=== PATIENT | female | born 1950 | race Caucasian/White ===

== ENCOUNTER → 2018-02-20 11:45 | Outpatient (CLI) | payer OTHER, SELFPAY | DX: Z23 Encounter for immunization (principal) | CPT/HCPCS: 90471; 90662 ==

== ENCOUNTER → 2018-02-20 15:00 | Outpatient (CLI) | payer OTHER, SELFPAY | DX: Z23 Encounter for immunization (principal) | CPT/HCPCS: 90471; 90662 ==

== ENCOUNTER → 2018-10-17 14:27 | Outpatient (CLI) | payer OTHER, SELFPAY ==
--- NOTE | 2018-10-17 | DI.MG.S_ITS ---
BILATERAL DIGITAL SCREENING MAMMOGRAM 3D/2D WITH CAD: 10/17/2018 CLINICAL: Routine screening. Comparison is made to exams dated: 09/25/2017 mammogram, 07/31/2016 mammogram, and 04/26/2015 mammogram - [facility]. The tissue of both breasts is heterogeneously dense. This may lower the sensitivity of mammography. Current study was also evaluated with a Computer Aided Detection (CAD) system. No significant masses, calcifications, or other findings are seen in either breast. There has been no significant interval change. IMPRESSION: NEGATIVE There is no mammographic evidence of malignancy. A 1 year screening mammogram is recommended. This exam was interpreted at Station ID: [id number]. NOTE: For mammograms, a report in lay terms will be sent to the patient. Approximately 15% of breast malignancies will not be visualized mammographically. In the management of a palpable breast mass, a negative mammogram must not discourage biopsy of a clinically suspicious lesion. Electronically Signed By: Patrick nevarez/bandar:10/17/2018 16:56:24 letter sent: Normal Exam ACR BI-RADS Category 1: Negative [id number]
== END ==
PROVIDERS: Visit Provider Family Medicine
DX: Z12.31 Encounter for screening mammogram for malignant neoplasm of breast (principal)
CPT/HCPCS: 77063; 77067

== ENCOUNTER 2018-11-19 00:33 | Emergency (ER) | payer OTHER, SELFPAY ==
[2018-11-19 00:47] VITALS: BP 189/97; PULSE 84; RESP 16; O2SAT 100; BMI 21.2
--- NOTE | 2018-11-19 00:49 | DI.CT.S_ITS ---
PROCEDURE: CT ABDOMEN PELVIS W CON INDICATIONS: severe right lower quadrant pain, worse with motion, extensive surgical history TECHNIQUE: After the administration of intravenous contrast, 5 mm thick sections acquired from the diaphragm to the symphysis. 5 mm coronal and sagittal reformats were acquired. For radiation dose reduction, the following was used: automated exposure control, adjustment of mA and/or kV according to patient size. COMPARISON: None. FINDINGS: Image quality: Excellent. ABDOMEN: Lung bases: Lung bases are clear. Heart size is normal. Solid organs: Liver is normal in size and enhancement. Gallbladder is normal. Biliary system is non dilated. Pancreas enhances normally. Spleen is multilobulated in shape but normal in enhancement. No adrenal nodules. Kidneys demonstrate normal size and enhancement, without hydronephrosis. Peritoneum and bowel: Increased quantity of stool throughout the colon. Mildly prominent small bowel loops with a few air-fluid levels. No surrounding inflammatory changes. No free fluid or air. Nodes and vessels: No retroperitoneal or mesenteric adenopathy by size criteria. Aorta and inferior vena cava are normal in size. Miscellaneous: No ventral hernias. PELVIS: Genitourinary: Bladder wall thickness is normal. Miscellaneous: No inguinal hernias or adenopathy. Bones: No suspicious bony lesions. No vertebral body compression fractures. IMPRESSION: 1. Increased fecal loading suggestive of obstipation. 2. Probable small bowel ileus, less likely enteritis. 3. Nonvisualized appendix but no secondary signs of acute appendicitis. 4. Concordant with preliminary results. Dictated by: Tamiko Garcias M.D. on 11/19/2018 at 8:57 Approved by: Tamiko Garcias M.D. on 11/19/2018 at 9:01
[2018-11-19 01:00] VITALS: BP 151/73; PULSE 68; RESP 16; O2SAT 100
[2018-11-19 01:20] LABS: Add Manual Diff / Slide Review NO; Basophils Absolute Auto 100 /uL (0-100); Basophils Percent Auto 1.1 % (0-2); Eosinophils Absolute Auto 100 /uL (0-450); Eosinophils Percent Auto 3.1 % (2-4); Hematocrit 41.5 % (36-46); Hemoglobin 13.8 g/dL (12.0-16.0); Lymphocytes Absolute Auto 2000 /uL (1100-4500); Lymphocytes Percent Auto 41.7 % (25-40); Mean Corpuscular HGB Conc 33.4 % (30-36); Mean Corpuscular Hemoglobin 30.2 PG (26-34); Mean Corpuscular Volume 90.5 fL (80-100); Monocytes Absolute Auto 400 /uL (0-900); Monocytes Percent Auto 9.4 % (3-14); Neutrophils Absolute Auto 2100 /uL (1500-7000); Neutrophils Percent Auto 44.7 % (50-75); Platelet Count 192 X10^3/uL (150-400); Red Blood Cell Count 4.58 X10^6/uL (4.0-5.2); Red Cell Distribution Width 13.6 % (11.6-14.8); White Blood Cell Count 4.7 X10^3/uL (4.5-11.0)
[2018-11-19] MEDS: SODIUM CHLORIDE 0.9% 1,000 ML 150 ML IV (01:26)
[2018-11-19] MEDS: HYDROMORPHONE 1 MG INJ IV ×2 (01:27→03:28)
[2018-11-19 01:49] LABS: Alanine Aminotransferase 36 IU/L (9-52); Albumin 4.7 g/dL (3.5-5.0); Albumin Globulin Ratio 1.4 (1.0-2.8); Alkaline Phosphatase 136 U/L (38-126); Aspartate Aminotransferase 31 IU/L (14-36); Bilirubin Total 0.7 mg/dL (0.2-1.3); Blood Urea Nitrogen 14 mg/dL (7-17); Calcium 9.6 mg/dL (8.4-10.2); Carbon Dioxide 26 mmol/L (22-32); Chloride 107 mmol/L (98-107); Estimated Glomerular Filt Rate > 60.0 mL/min (>60); Globulin 3.3 g/dL (1.7-4.1); Glucose 85 mg/dL (80-110); HEMOLYSIS < 15 (0-50); Lipase 257 U/L (23-300); Potassium 3.9 mmol/L (3.4-5.1); Sodium 143 mmol/L (137-145)
[2018-11-19 02:00] VITALS: BP 153/66; PULSE 71; RESP 16; O2SAT 99
--- NOTE | 2018-11-19 02:19 | ED_ITS ---
HPI - Abdominal Pain General Chief Complaint: Abdominal Pain Stated Complaint: thinks she may have appendicitis or bowel obstruct Time Seen by Provider: 11/19/18 00:35 Source: patient and family Mode of arrival: ambulatory Limitations: no limitations History of Present Illness HPI narrative: 67-year-old female nonsmoker with extensive abdominal surgical history presents with a chief complaint of gradually worsening right lower quadrant pain over the course of the day. She does admit to some radiation to her back. She has had multiple episodes of adhesions and small-bowel obstructions. She denies nausea or vomiting. She has had no fever or chills. Her pain is worse with motion and improves with rest. It radiates from her right groin to her right back. She denies any dysuria, frequency or urgency. MD complaint: abdominal pain Onset (ago): hour(s) Pain Consistency: constant Location: RLQ Severity: moderate Severity scale (1-10): 5 Quality: cramping Radiation: suprapubic and R flank Relieving factors: rest Exacerbating factors: movement Associated symptoms: denies other symptoms Related Data Previous Rx's Medication Instructions Recorded pneumoc 13-kamilla conj-dip cr(PF) 0.5 ml IM X1 #1 ea 07/03/16 [Prevnar 13 (PF)] Mouth Guard #1 ea 04/16/18 SEE SCAN FROM 04/21/18 FOR See Rx Instructions .ROUTE 04/21/18 VITAMINS/SUPPLEMENTS .COMPLEX #1 hydrocodone-acetaminophen 1 tab PO Q4-6H PRN #10 tab 11/19/18 hyoscyamine sulfate 0.125 mg PO BID-QID PRN #10 tab 11/19/18 ondansetron 4 mg PO TID-QID PRN #10 tab 11/19/18 Allergies Allergy/AdvReac Type Severity Reaction Status Date / Time clindamycin [CLINDAMYCIN] Allergy Unknown Unverified 10/31/17 14:13 pentazocine [From TALWIN] Allergy Unknown Unverified 10/31/17 14:13 Sulfa (Sulfonamide Allergy Unknown Unverified 10/31/17 14:13 Antibiotics) [SULFA (SULFONAMIDE ANTIBIOTICS)] SULFA Allergy Unknown RASH Uncoded 10/31/17 14:13 Review of Systems Constitutional Denies chills, Denies fever(s), Denies lethargy and Denies weakness Eyes Denies change in vision, Denies eye discharge, Denies irritation and Denies loss of vision ENT Ears, Nose, Mouth, and Throat: Denies change in voice, Denies neck pain and Denies sore throat Cardiovascular Denies chest pain, Denies irregular heart rhythm, Denies lightheadedness, Denies palpitations, Denies dyspnea, Denies dyspnea on exertion and Denies orthopnea Respiratory Denies cough, Denies dyspnea, Denies dyspnea on exertion and Denies wheezing Gastrointestinal Gastrointestinal: Reports abdominal pain, Denies change in bowel habits, Denies diarrhea, Denies nausea and Denies vomiting Genitourinary Denies hematuria, Denies flank pain, Denies urinary incontinence and Denies urinary urgency Musculoskeletal Denies neck pain Integumentary/Breasts Denies pruritus, Denies erythema, Denies rash and Denies wounds Neurologic Denies confusion, Denies loss of vision and Denies weakness Psychiatric Denies anxiety, Denies confusion, Denies depression, Denies homicidal ideation and Denies suicidal ideation Endocrine Denies palpitations Hematologic/Lymphatic Denies easy bruising Allergic/Immunologic Denies wheezing FOR[facility]LY [facility] Medical History Osteopenia (Chronic) TMJ (temporomandibular joint disorder) (Chronic) Factor V Leiden (Chronic) Bowel perforation (Chronic ~1973) Genital warts (Chronic ~1980) Hearing loss (Chronic) Tinnitus (Chronic) Vertigo (Chronic ~2009) Vision disorder (Chronic) Abnormal Pap smear of cervix (Resolved ~2009) Chicken pox (Resolved) Measles (Resolved ~1956) Surgical History Anesthesia (Resolved) Fractures (Resolved) Status post colostomy (~1973) Family History Father No problems noted. Mother No problems noted. 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 Mother No problems noted. 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 Normocephalic. No temporal or scalp tenderness. EYES: Pupils equal round and reactive. Extraocular motions intact. No scleral icterus. No injection or drainage. ENT: Nose without bleeding, purulent drainage or septal hematoma. Throat without erythema, tonsillar hypertrophy or exudate. Uvula midline. Airway patent. NECK: Trachea midline. No JVD or lymphadenopathy. Supple, nontender, no meningea l signs. CARDIOVASCULAR: Regular rate and rhythm without murmurs, gallops, or rubs. RESPIRATORY: Clear to auscultation. Breath sounds equal bilaterally. No wheezes, rales, or rhonchi. GASTROINTESTINAL: Abdomen soft, tender right lower quadrant, nondistended. No hepato-splenomegaly, or palpable masses. No guarding. EXTREMITIES: No clubbing, cyanosis, or edema. No joint tenderness, effusion, or edema noted. BACK: Nontender without deformity or crepitance. No flank tenderness. NEURO: AOx3. SKIN: No rash or erythema. Initial Vital Signs Initial Vital Signs: Vital Signs Pulse Rate 84 11/19/18 00:47 Respiratory Rate 16 11/19/18 00:47 Blood Pressure 189/97 H 11/19/18 00:47 Pulse Oximetry 100 11/19/18 00:47 Course Orders Ordered: ED Orders 11/19/18 00:49 CT abdomen pelvis w con Stat 11/19/18 01:12 Complete Blood Count AUTO DIFF Stat Comprehensive Metabolic Panel Stat Lipase Stat Sodium Chloride (Normal Saline 0.9%) 1,000 mls @ 150 mls/hr IV CONT JOHNATHAN Last Infusion: 11/19/18 03:06 Dose: 0 mls/hr Admin: 11/19/18 01:26 Dose: 150 mls/hr Discontinued Medications Hydrocodone Bitart/Acetaminophen (Vicodin Prepack) 1 bottle MISC SEEINSTR ONE Stop: 11/19/18 03:05 Last Admin: 11/19/18 03:16 Dose: 1 bottle Hydromorphone HCl (Dilaudid) 1 mg IV NOW ONE Stop: 11/19/18 01:26 Last Admin: 11/19/18 01:27 Dose: 1 mg Hydromorphone HCl (Dilaudid) 1 mg IV NOW ONE Stop: 11/19/18 03:27 Last Admin: 11/19/18 03:28 Dose: 1 mg Ondansetron HCl (Zofran) 4 mg IV NOW ONE Stop: 11/19/18 02:38 Last Admin: 11/19/18 02:40 Dose: 4 mg Ondansetron HCl (Zofran Odt Prepack) 1 bottle MISC SEEINSTR ONE Stop: 11/19/18 03:05 Last Admin: 11/19/18 03:16 Dose: 1 bottle Ondansetron HCl (Zofran) 4 mg IV NOW ONE Stop: 11/19/18 03:27 Last Admin: 11/19/18 03:28 Dose: 4 mg Vital Signs - 8 hr 11/19/18 00:47 11/19/18 01:00 11/19/18 02:00 Pulse Rate 84 68 71 Respiratory Rate 16 16 16 Blood Pressure 189/97 H Blood Pressure [Left Arm] 151/73 H 153/66 H Pulse Oximetry 100 100 99 11/19/18 03:16 Pulse Rate 60 Respiratory Rate 18 Blood Pressure 107/68 Blood Pressure [Left Arm] Pulse Oximetry 98 MDM - Abdominal Pain Lab Data Result diagrams: 11/19/18 01:12 11/19/18 01:12 Lab Results 11/19/18 11/19/18 Range/Units 01:12 01:12 WBC 4.7 (4.5-11.0) X10^3/uL RBC 4.58 (4.0-5.2) X10^6/uL Hgb 13.8 (12.0-16.0) g/dL Hct 41.5 (36-46) % MCV 90.5 (80-100) fL MCH 30.2 (26-34) PG MCHC 33.4 (30-36) % RDW 13.6 (11.6-14.8) % Plt Count 192 (150-400) X10^3/uL Neut % (Auto) 44.7 L (50-75) % Lymph % (Auto) 41.7 H (25-40) % [place] % (Auto) 9.4 (3-14) % Eos % (Auto) 3.1 (2-4) % Baso % (Auto) 1.1 (0-2) % Neut # (Auto) 2100 (3894-1587) /uL Lymph # (Auto) 2000 (4557-7257) /uL [place] # (Auto) 400 (0-900) /uL Eos # (Auto) 100 (0-450) /uL Baso # (Auto) 100 (0-100) /uL Sodium 143 (137-145) mmol/L Potassium 3.9 (3.4-5.1) mmol/L Chloride 107 (98-107) mmol/L Carbon Dioxide 26 (22-32) mmol/L BUN 14 (7-17) mg/dL Creatinine 0.50 L (0.52-1.04) mg/dL Estimated GFR > 60.0 (>60) mL/min BUN/Creatinine Ratio 28.0 H (6-22) Glucose 85 (80-110) mg/dL Calcium 9.6 (8.4-10.2) mg/dL Total Bilirubin 0.7 (0.2-1.3) mg/dL AST 31 (14-36) IU/L ALT 36 (9-52) IU/L Alkaline Phosphatase 136 H (38-126) U/L Total Protein 8.0 (6.3-8.2) g/dL Albumin 4.7 (3.5-5.0) g/dL Globulin 3.3 (1.7-4.1) g/dL Albumin/Globulin Ratio 1.4 (1.0-2.8) Lipase 257 (23-300) U/L Imaging Data CT scan - abdomen: Radiologist's impression: No diverticulitis or colitis, obstructive uropathy or bowel obstruction. Appendix not visualized however no pericecal inflammation. Enteritis as described. MDM Narrative Medical decision making narrative: Multiple etiologies for patient's symptoms considered including: [Bowel obstruction versus pain from adhesions versus sara endicitis versus other] Patient's symptoms improved or duration of stay with above-stated therapies. Findings and discharge diagnosis discussed with patient/family followed by verbalization of understanding Return precautions discussed with patient/family whom verbalize understanding. Discharge Plan Departure Patient Disposition: Home Clinical Impression: Enteritis Constipation Qualifiers: Constipation type: unspecified constipation type Qualified Code(s): K59.00 - Constipation, unspecified Interventions: ED Discharge Assessment Last Done: 11/19/18 03:16 Instructions: DI for Enteritis Activity Restrictions/Additional Instructions: 1. Drink plenty of fluids with frequent small sips. 2. For the next 24 hours a clear liquid diet is advised. After that please employ a brat diet which would include bananas, rice, apples, toast. 3. Please take medications as directed. 4. Please follow-up with your doctor in the next 1-2 days. Call the office for an appointment. 5. Please return to the emergency Department for any worsening or persistent symptoms, such as increasing pain or fever. Prescriptions: New hydrocodone-acetaminophen 5-325 mg tablet 1 tab PO Q4-6H PRN (Reason: pain) Qty: 10 RF: 0 ondansetron 4 mg tablet,disintegrating 4 mg PO TID-QID PRN (Reason: nausea and vomiting) Qty: 10 RF: 0 hyoscyamine sulfate 0.125 mg tablet 0.125 mg PO BID-QID PRN (Reason: dyspepsia) Qty: 10 RF: 0 No Action pneumoc 13-kamilla conj-dip cr(PF) [Prevnar 13 (PF)] 0.5 ML syringe 0.5 ml IM X1 Qty: 1 RF: 0 SEE SCAN FROM 04/21/18 FOR VITAMINS/SUPPLEMENTS See Rx Instructions .ROUTE .COMPLEX Qty: 1 RF: 0 Mouth Guard Qty: 1 RF: 1 Stand Alone Forms: Work Release Note
[2018-11-19] MEDS: ONDANSETRON 4 MG/2 ML INJ IV ×2 (02:40→03:28)
[2018-11-19 03:16] VITALS: BP 107/68; PULSE 60; RESP 18; O2SAT 98
[2018-11-19] MEDS: ONDANSETRON 4 MG ODT PREPACK 1 BOTTLE MISC (03:16)
[2018-11-19] MEDS: HYDROCODONE/ACET 5/325 PREPACK 1 BOTTLE MISC (03:16)
[2018-11-19 03:32] VITALS: BP 152/79; PULSE 75; RESP 16; O2SAT 98
== END 2018-11-19 04:00 | disposition home or self-care (01) ==
PROVIDERS: Emergency Provider Emergency Medicine
DX: K52.9 Noninfective gastroenteritis and colitis, unspecified (principal); K59.00 Constipation, unspecified
CPT/HCPCS: 36591; 74177; 80053; 83690; 85025; 96361; 96374; 96375; 96376; 99283; 99284; J1170; J2405; Q9967

== ENCOUNTER → 2018-11-21 14:16 | Outpatient (CLI) | payer OTHER, SELFPAY ==
[2018-11-22 13:31] LABS: Adenovirus F 40/41 Not Detected (Not Detect); Campylobacter Not Detected (Not Detect); Clostridium difficile toxin AB Not Detected (Not Detect); Cryptosporidium Not Detected (Not Detect); Cyclospora cayetanensis Not Detected (Not Detect); Entamoeba histolytica Not Detected (Not Detect); Enteroaggregative E.coli Not Detected (Not Detect); Enteropathogenic E.coli Not Detected (Not Detect); Enterotoxigenic E.coli It/st Not Detected (Not Detect); Giardia lamblia Not Detected (Not Detect); Plesiomonsa shigelloides Not Detected (Not Detect); Salmonella Not Detected (Not Detect); Shiga-like toxin-prod E.coli Not Detected (Not Detect); Shigella/Enteroinvasive E.coli Not Detected (Not Detect); Vibrio Not Detected (Not Detect); Vibrio cholerae Not Detected (Not Detect); Yersinia enterocolitica Not Detected (Not Detect)
[2018-11-22 13:32] LABS: Astrovirus Not Detected (Not Detect); Norovirus GI/GII Not Detected (Not Detect); Rotavirus A Not Detected (Not Detect)
== END ==
PROVIDERS: Visit Provider Family Medicine
DX: K52.9 Noninfective gastroenteritis and colitis, unspecified (principal); K59.00 Constipation, unspecified; R10.9 Unspecified abdominal pain
CPT/HCPCS: 87507

== ENCOUNTER → 2019-02-10 10:42 | Outpatient (CLI) | payer OTHER, SELFPAY ==
--- NOTE | 2019-02-10 10:44 | DI.US.S_ITS ---
PROCEDURE: US PELVIC COMPLETE INDICATIONS: POST MENOPAUSAL BLEEDING AND CRAMPING TECHNIQUE: Real-time scanning was performed of the pelvic organs, with image documentation. Additional endovaginal scanning was necessary due to incomplete visualization of the adnexal and endometrial structures by transabdominal scanning. COMPARISON: None. FINDINGS: Transabdominal scanning: Limited scanning through the kidneys shows no hydronephrosis. No pathologic free abdominal or pelvic fluid. Endovaginal scanning: Uterus: Uterus is normal in size at 12.1 x 2.2 x 2.8 cm. The endometrium measures 1.3 mm in combined thickness. Ovaries: Ovaries normal in size measuring 1.8 x 0.8 x 0.8 cm on the right and 2.5 x 1.0 x 0.8 cm on the left. Simple cyst associated with the left ovary measuring 1.3 cm. IMPRESSION: 1. Normal endometrial complex at 1.3 mm. 2. 13 mm simple left ovarian cyst. Dictated by: Rajat JASSO Interpreted: Naomi Walker MD on 02/10/2019 at 13:51 Approved by: Naomi Walker M.D. on 02/10/2019 at 17:07
== END ==
PROVIDERS: PCP Family Medicine; Visit Provider Specialist
DX: N95.0 Postmenopausal bleeding (principal); R10.2 Pelvic and perineal pain; N83.292 Other ovarian cyst, left side
CPT/HCPCS: 76830; 76856

== ENCOUNTER → 2019-02-10 13:25 | Outpatient (CLI) | payer OTHER, SELFPAY | PROVIDERS: PCP Family Medicine | DX: Z23 Encounter for immunization (principal) | CPT/HCPCS: 90471; 90662 ==

== ENCOUNTER 2019-04-15 13:45 | Outpatient (RCR) | payer OTHER, MEDICARE, SELFPAY ==
--- NOTE | 2019-04-08 15:52 | PT.OIE ---
Current Diagnoses Benign paroxysmal vertigo, unspecified ear (04/08/19) Benign paroxysmal vertigo, left ear (04/08/19) Past Medical History (Last Reviewed 11/21/18 @ 14:19 by Antonella Gannon DO) Abnormal Pap smear of cervix (Resolved ~2009) Bowel perforation (Chronic ~1973) Chicken pox (Resolved) Factor V Leiden (Chronic) Genital warts (Chronic ~1980) Hearing loss (Chronic) Measles (Resolved ~1956) Osteopenia (Chronic) Tinnitus (Chronic) TMJ (temporomandibular joint disorder) (Chronic) Vertigo (Chronic ~2009) Vision disorder (Chronic) Past Surgical History (Last Reviewed 11/21/18 @ 14:19 by Antonella Gannon DO) Anesthesia (Resolved) Fractures (Resolved) Status post colostomy (~1973) Visit Care Team Role Provider Type Antonella aGnnon DO Attending Provider Physician Primary Care Provider Specialty: [facility] Address: [address] [place] [address], [facility] Email: [email or web address] Physical Therapy Initial Evaluation PT-OP-A Visit Information Start: 04/08/19 15:31 Freq: Status: Active Protocol: Document 04/08/19 14:30 DCW (Rec: 04/08/19 15:51 DCW [id number]) Out-Patient Physical Therapy Visit Information Visit Information Visit Type Initial Evaluation Visit Start Time 14:30 Visit Stop Time 15:05 Total Visit Minutes 35 Visit Number 1 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 Pt reports episodes last seconds. Symptoms are provoked by looking up to the right, rolling over in bed, or getting up in bed. Pt denies recent hearing changes, tinnitus, diplopia, dysarthria , discoordination, or decreased mentation/ consciousness. Pt reports symptoms are not waxing/waning in nature. 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 Pt reports that her sister is an preschool paraprofessional, and 10 years ago, performed an Fred on her when pt first began having symptoms. Five years ago, pt had a recurrence, and was treated at this facility, and she was doing well until three weeks ago. As pt has been diagnosed and effectively treated for BPPV in the past, including by this therapist, an abbreviated evaluation was performed. If pt's symptoms change, worsen, or do not respond to CRM, a more comprehensive assessment will be needed. Prior Treatments and Tests Prior history and treatment of BPPV x2 Treatment Goals Patient/Caregiver Goals Eliminate positional BPPV PT-OP-C Subjective Start: 04/08/19 15:31 Freq: Status: Active Protocol: Document 04/08/19 14:30 DCW (Rec: 04/08/19 15:51 DCW [id number]) OP-PT Subjective Patient Comments Patient Comments My tried that Fred on me, I tried it on myself, we just can't get it right. Patient Reported Progress Same Patient Questionnaires Dizziness Handicap Inventory DHI Score 20% DHI Functional Impairment 20 to 39% Impaired (Score 20- 39) OP-PT Pain Assessment Pain Assessment Grid Paper Pain Assessment Grid Completed N/A PT-OP-O Vestibular Start: 04/08/19 15:31 Freq: Status: Active Protocol: Document 04/08/19 14:30 DCW (Rec: 04/08/19 15:51 DCW [id number]) Vestibular Assessment Positional Testing Mak[place]la-Hallpike Positive Left,Negative Right, Upbeating,< 60 Seconds Rolling Test Negative Left,Negative Right PT-OP-Q Treatments Start: 04/08/19 15:31 Freq: Status: Active Protocol: Document 04/08/19 14:30 DCW (Rec: 04/08/19 15:51 DCW [id number]) Canalithic Repositioning BPPV Treatment Fred Affected Canal(s) Left posterior Reps x2 PT-OP-T Assessment and Plan Start: 04/08/19 15:31 Freq: Status: Active Protocol: Document 04/08/19 14:30 DCW (Rec: 04/08/19 15:51 DCW [id number]) Physical Therapy Assessment Rehab Potential Rehabilitation Potential Excellent Evaluation Complexity Number of Personal Factors/Comorbidities 0 Number of Body Systems Impaired 1-2 Clinical Presentation at Evaluation Unstable Impairments Impairments Balance,Vestibular Goals Two Impairment Positive L [place]-Hallpike Short Term Goal (STG) Negative [place]-Hallpike bilaterally STG Duration 05/08/19 One Impairment Pt has rotational vertigo with positional changes Short Term Goal (STG) Pt to report ability to enter and exit bed with no complaints of vertigo STG Duration 05/08/19 Assessment Summary Assessment During left [place]-Hallpike test, pt complained of vertigo and demonstrated up-beating, torsional nystagmus lasting approximately 5 seconds, consistent with diagnosis of left-sided posterior canal BPPV, canalithiasis-type. Pt was treated with a left-sided Fred maneuver. Pt complained of symptoms in the first and third position, which is normally indicative of a successful treatment. Further positional testing was negative. Pt was educated on BPPV, expectations for treatment, possible recurrence (BPPV has a ~50% recurrence rate in the five years following treatment), and post -Frde restrictions. Pt to return in ~1 week for a follow -up appointment, and intermittently afterward as indicated for treatment of BPPV. Physical Therapy Plan Frequency and Duration Frequency of Treatment 1x/Week Duration of Treatment 6 weeks Plan of Care Start Date 04/08/19 Plan of Care End Date 05/20/19 Therapeutic Interventions Therapeutic Interventions Balance Training,Canalithic Repositioning,Vestibular Rehabilitation Next Visit Focus/Plan Next Note Type Treatment Note Next Visit Plan Positional testing, CRM as indicated
--- NOTE | 2019-04-08 15:52 | PT.OPPOC ---
Current Diagnoses Benign paroxysmal vertigo, unspecified ear (04/08/19) Benign paroxysmal vertigo, left ear (04/08/19) Visit Care Team Role Provider Type Antonella Gannon DO Attending Provider Physician Primary Care Provider Specialty: [facility] Address: [address] [place] [address], [facility] [place], [address] Email: [email or web address] Plan Of Care PT-OP-T Assessment and Plan Start: 04/08/19 15:31 Freq: Status: Active Protocol: Document 04/08/19 14:30 DCW (Rec: 04/08/19 15:51 DCW [id number]) Physical Therapy Assessment Rehab Potential Rehabilitation Potential Excellent Evaluation Complexity Number of Personal Factors/Comorbidities 0 Number of Body Systems Impaired 1-2 Clinical Presentation at Evaluation Unstable Impairments Impairments Balance,Vestibular Goals Two Impairment Positive L [place]-Hallpike Short Term Goal (STG) Negative [place]-Hallpike bilaterally STG Duration 05/08/19 One Impairment Pt has rotational vertigo with positional changes Short Term Goal (STG) Pt to report ability to enter and exit bed with no complaints of vertigo STG Duration 05/08/19 Assessment Summary Assessment During left Makayla-Hallpike test, pt complained of vertigo and demonstrated up-beating, torsional nystagmus lasting approximately 5 seconds, consistent with diagnosis of left-sided posterior canal BPPV, canalithiasis-type. Pt was treated with a left-sided Fred maneuver. Pt complained of symptoms in the first and third position, which is normally indicative of a successful treatment. Further positional testing was negative. Pt was educated on BPPV, expectations for treatment, possible recurrence (BPPV has a ~50% recurrence rate in the five years following treatment), and post -Fred restrictions. Pt to return in ~1 week for a follow -up appointment, and intermittently afterward as indicated for treatment of BPPV. Physical Therapy Plan Frequency and Duration Frequency of Treatment 1x/Week Duration of Treatment 6 weeks Plan of Care Start Date 04/08/19 Plan of Care End Date 05/20/19 Therapeutic Interventions Therapeutic Interventions Balance Training,Canalithic Repositioning,Vestibular Rehabilitation Next Visit Focus/Plan Next Note Type Treatment Note Next Visit Plan Positional testing, CRM as indicated Plan of Care Dates Plan of Care Start Date 11/20/19 Plan of Care End Date 05/20/19
--- NOTE | 2019-04-15 14:16 | PT.OTN ---
Current Diagnoses Benign paroxysmal vertigo, unspecified ear (04/15/19) Benign paroxysmal vertigo, left ear (04/15/19) Physical Therapy Treatment Note PT-OP-A Visit Information Start: 04/08/19 15:31 Freq: Status: Active Protocol: Document 04/15/19 13:45 DCW (Rec: 04/15/19 14:16 DCW [id number]) Out-Patient Physical Therapy Visit Information Visit Information Visit Type Treatment Note Visit Start Time 13:45 Visit Stop Time 14:05 Total Visit Minutes 20 Visit Number 2 Number of MARINE DESIGN ENGINEER Visits 0 Evaluation Information Evaluation Date 04/08/19 PT-OP-B Current Condition Start: 04/08/19 15:31 Freq: Status: Active Protocol: Document 04/08/19 14:30 DCW (Rec: 04/08/19 15:51 DCW [id number]) Current Condition History of Current Condition Onset Date three weeks Current Complaints Positional vertigo History of Current Condition Pt is a 68 year old female complaining of a three week history of motion-induced vertigo. Pt reports episodes last seconds. Symptoms are provoked by looking up to the right, rolling over in bed, or getting up in bed. Pt denies recent hearing changes, tinnitus, diplopia, dysarthria , discoordination, or decreased mentation/ consciousness. Pt reports symptoms are not waxing/waning in nature. 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 Pt reports that her sister is an transportation coordinator, and 10 years ago, performed an Fred on her when pt first began having symptoms. Five years ago, pt had a recurrence, and was treated at this facility, and she was doing well until three weeks ago. As pt has been diagnosed and effectively treated for BPPV in the past, including by this therapist, an abbreviated evaluation was performed. If pt's symptoms change, worsen, or do not respond to CRM, a more comprehensive assessment will be needed. Prior Treatments and Tests Prior history and treatment of BPPV x2 Treatment Goals Patient/Caregiver Goals Eliminate positional BPPV PT-OP-C Subjective Start: 04/08/19 15:31 Freq: Status: Active Protocol: Document 04/15/19 13:45 DCW (Rec: 04/15/19 14:16 DCW [id number]) OP-PT Subjective Patient Comments Patient Comments My dizziness is so much better. I may be still having just a little bit when I roll over in bed. PT-OP-O Vestibular Start: 04/08/19 15:31 Freq: Status: Active Protocol: Document 04/15/19 13:45 DCW (Rec: 04/15/19 14:16 DCW [id number]) Vestibular Assessment Positional Testing Middleton-Hallpike Negative Left,Negative Right Rolling Test Negative Left,Negative Right PT-OP-Q Treatments Start: 04/08/19 15:31 Freq: Status: Active Protocol: Document 04/15/19 13:45 DCW (Rec: 04/15/19 14:16 DCW [id number]) Canalithic Repositioning BPPV Treatment Fred Affected Canal(s) Left posterior Reps x2 PT-OP-T Assessment and Plan Start: 04/08/19 15:31 Freq: Status: Active Protocol: Document 04/15/19 13:45 DCW (Rec: 04/15/19 14:16 DCW [id number]) Physical Therapy Assessment Impairments Impairments Balance,Vestibular Goals Two Impairment Positive L Makayla-Hallpike Short Term Goal (STG) Negative Makayla-Hallpike bilaterally STG Duration 05/08/19 One Impairment Pt has rotational vertigo with positional changes Short Term Goal (STG) Pt to report ability to enter and exit bed with no complaints of vertigo STG Duration 05/08/19 Assessment Summary Assessment Positional testing entirely negative today. Unable to reproduce pt's complaints with rolling. Pt did note very mild vertigo upon supine->sit, however exhibited no associated nystagmus. Due to pt's continued mild complaints , a left-sided Fred was once again performed. Pt had no symptoms throughout maneuver. Pt will not be discharged at this time, however will also not schedule any more appointments today. Pt will call for follow-up visits within the next month if her symptoms persish, and otherwise will be discharged. Physical Therapy Plan Frequency and Duration Frequency of Treatment 1x/Week Duration of Treatment 6 weeks Plan of Care Start Date 04/08/19 Plan of Care End Date 05/20/19 Therapeutic Interventions Therapeutic Interventions Balance Training,Canalithic Repositioning,Vestibular Rehabilitation Next Visit Focus/Plan Next Note Type Treatment Note Next Visit Plan Positional testing, CRM as indicated
--- NOTE | 2019-05-19 10:21 | PT.OPDS ---
Current Diagnoses Benign paroxysmal vertigo, unspecified ear (04/15/19) Benign paroxysmal vertigo, left ear (04/15/19) Visit Care Team Role Provider Type Antonella Gannon DO Attending Provider Physician Primary Care Provider Specialty: [facility] Address: [address] [place] [address], [facility] Email: [email or web address] Visit Number Visit Number 2 Discharge Summary PT-OP-B Current Condition Start: 04/08/19 15:31 Freq: Status: Active Protocol: Document 04/08/19 14:30 DCW (Rec: 04/08/19 15:51 DCW [id number]) Current Condition History of Current Condition Onset Date three weeks Current Complaints Positional vertigo History of Current Condition Pt is a 68 year old female complaining of a three week history of motion-induced vertigo. Pt reports episodes last seconds. Symptoms are provoked by looking up to the right, rolling over in bed, or getting up in bed. Pt denies recent hearing changes, tinnitus, diplopia, dysarthria , discoordination, or decreased mentation/ consciousness. Pt reports symptoms are not waxing/waning in nature. 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 Pt reports that her sister is an veneer jointer helper, and 10 years ago, performed an Fred on her when pt first began having symptoms. Five years ago, pt had a recurrence, and was treated at this facility, and she was doing well until three weeks ago. As pt has been diagnosed and effectively treated for BPPV in the past, including by this therapist, an abbreviated evaluation was performed. If pt's symptoms change, worsen, or do not respond to CRM, a more comprehensive assessment will be needed. Prior Treatments and Tests Prior history and treatment of BPPV x2 Treatment Goals Patient/Caregiver Goals Eliminate positional BPPV PT-OP-C Subjective Start: 04/08/19 15:31 Freq: Status: Active Protocol: Document 04/15/19 13:45 DCW (Rec: 04/15/19 14:16 DCW [id number]) OP-PT Subjective Patient Comments Patient Comments My dizziness is so much better. I may be still having just a little bit when I roll over in bed. PT-OP-O Vestibular Start: 04/08/19 15:31 Freq: Status: Active Protocol: Document 04/15/19 13:45 DCW (Rec: 04/15/19 14:16 DCW [id number]) Vestibular Assessment Positional Testing Makayla-Hallpike Negative Left,Negative Right Rolling Test Negative Left,Negative Right PT-OP-T Assessment and Plan Start: 04/08/19 15:31 Freq: Status: Active Protocol: Document 05/19/19 10:19 DCW (Rec: 05/19/19 10:21 DCW [id number]) Physical Therapy Assessment Goals Two Impairment Positive L Makayla-Hallpike Short Term Goal (STG) Negative Makayla-Hallpike bilaterally STG Duration 05/08/19 One Impairment Pt has rotational vertigo with positional changes Short Term Goal (STG) Pt to report ability to enter and exit bed with no complaints of vertigo STG Duration Met Progress Towards Goals Progress Towards Goals Goals Met Assessment Summary Assessment spoke with pt over the phone today, pt reports that she was doing very well, no more symptoms. Pt will be discharged from skilled PT at this time. Physical Therapy Plan Frequency and Duration Frequency of Treatment 1x/Week Duration of Treatment 6 weeks Plan of Care Start Date 04/08/19 Plan of Care End Date 05/20/19 Therapeutic Interventions Therapeutic Interventions Balance Training,Canalithic Repositioning,Vestibular Rehabilitation Discharge Physical Therapy Discharge Reasons Goals Met Next Visit Focus/Plan Next Note Type Discharge Summary
== END 2019-06-04 10:45 ==
LOC: PHYS 13:45
PROVIDERS: PCP Family Medicine; Visit Provider Family Medicine
DX: H81.10 Benign paroxysmal vertigo, unspecified ear (principal); H81.12 Benign paroxysmal vertigo, left ear
CPT/HCPCS: 95992; 97161

== ENCOUNTER → 2020-02-02 10:48 | Outpatient (CLI) | payer OTHER, MEDICARE, SELFPAY ==
--- NOTE | 2020-02-02 11:03 | DI.MG.S_ITS ---
Patient Name: ANTOINETTE BECK date: 1950 Sex: F Attending Physician: Jagdeep Indications: Date: 02/02/2020 10:53 At the request of: DEBBY MASTERS Procedure: MM screening mammo BI BILATERAL DIGITAL SCREENING MAMMOGRAM 3D/2D WITH CAD: 02/02/2020 CLINICAL: Routine screening. Comparison is made to exams dated: 10/17/2018 mammogram, 09/25/2017 mammogram, 07/31/2016 mammogram, 04/26/2015 mammogram - [facility], and 10/31/2012 mammogram - [facility]. The tissue of both breasts is heterogeneously dense. This may lower the sensitivity of mammography. Current study was also evaluated with a Computer Aided Detection (CAD) system. No significant masses, calcifications, or other findings are seen in either breast. There has been no significant interval change. IMPRESSION: NEGATIVE There is no mammographic evidence of malignancy. A 1 year screening mammogram is recommended. This exam was interpreted at Station ID: [id number]. NOTE: For mammograms, a report in lay terms will be sent to the patient. Approximately 15% of breast malignancies will not be visualized mammographically. In the management of a palpable breast mass, a negative mammogram must not discourage biopsy of a clinically suspicious lesion. Electronically Signed By: Roshan campos/bandar:02/02/2020 17:30:09 letter sent: Normal Exam ACR BI-RADS Category 1: Negative 3341F
== END ==
PROVIDERS: PCP Family Medicine; Referring Provider Family Medicine; Visit Provider Family Medicine
DX: Z12.31 Encounter for screening mammogram for malignant neoplasm of breast (principal)
CPT/HCPCS: 77063; 77067

== ENCOUNTER → 2020-02-23 | Outpatient (CLI) | payer OTHER, SELFPAY | PROVIDERS: PCP Family Medicine; Referring Provider Internal Medicine; Visit Provider Internal Medicine | DX: Z23 Encounter for immunization (principal) | CPT/HCPCS: 90471; 90662 ==

== ENCOUNTER → 2020-05-25 16:31 | Outpatient (CLI) | payer OTHER, SELFPAY ==
[2020-05-25] MEDS: COVID-19 VACC(MODERNA-1)/PF 100 MCG/0.5 ML VIAL IM (16:36)
== END ==
PROVIDERS: PCP Family Medicine; Visit Provider Internal Medicine
DX: Z23 Encounter for immunization (principal)
CPT/HCPCS: 0011A; 91301

== ENCOUNTER → 2020-06-22 10:59 | Outpatient (CLI) | payer OTHER, SELFPAY ==
[2020-06-22] MEDS: COVID-19 VACC #2, MRNA(MOD) 100 MCG/0.5 ML VIAL IM (11:03)
== END ==
PROVIDERS: PCP Family Medicine; Visit Provider Internal Medicine
DX: Z23 Encounter for immunization (principal)
CPT/HCPCS: 0012A; 91301

== ENCOUNTER → 2021-02-10 17:36 | Outpatient (CLI) | payer MEDICARE, OTHER, SELFPAY ==
--- NOTE | 2021-02-10 17:42 | DI.MG.S_ITS ---
BILATERAL DIGITAL SCREENING MAMMOGRAM 3D/2D WITH CAD: 02/10/2021 CLINICAL: Routine screening. Comparison is made to exams dated: 02/02/2020 mammogram, 10/17/2018 mammogram, and 09/25/2017 mammogram - [facility]. The tissue of both breasts is heterogeneously dense. This may lower the sensitivity of mammography. Current study was also evaluated with a Computer Aided Detection (CAD) system. No significant masses, calcifications, or other findings are seen in either breast. There has been no significant interval change. IMPRESSION: NEGATIVE There is no mammographic evidence of malignancy. A 1 year screening mammogram is recommended. This exam was interpreted at Station ID: [id number]. NOTE: For mammograms, a report in lay terms will be sent to the patient. Approximately 15% of breast malignancies will not be visualized mammographically. In the management of a palpable breast mass, a negative mammogram must not discourage biopsy of a clinically suspicious lesion. Electronically Signed By: Wilver molina/bandar:02/13/2021 07:13:37 letter sent: Normal Exam ACR BI-RADS Category 1: Negative 3341F
== END ==
PROVIDERS: PCP Family Medicine; Referring Provider Family Medicine; Visit Provider Family Medicine
DX: Z12.31 Encounter for screening mammogram for malignant neoplasm of breast (principal)
CPT/HCPCS: 77063; 77067

== ENCOUNTER → 2022-02-13 15:12 | Outpatient (CLI) | payer MEDICARE, OTHER, SELFPAY ==
--- NOTE | 2022-02-13 | DI.MG.S_ITS ---
BILATERAL DIGITAL SCREENING MAMMOGRAM 3D/2D WITH CAD: 02/13/2022 CLINICAL: Routine screening. Comparison is made to exams dated: 02/10/2021 mammogram, 02/02/2020 mammogram, 10/17/2018 mammogram, and 09/25/2017 mammogram - [facility]. Both breasts are heterogeneously dense, which may obscure small masses (category c / 51-75% glandular tissue). Current study was also evaluated with a Computer Aided Detection (CAD) system. No significant masses, calcifications, or other findings are seen in either breast. There has been no significant interval change. IMPRESSION: NEGATIVE There is no mammographic evidence of malignancy. A 1 year screening mammogram is recommended. Based on the Tyrer Cuzick model (a risk assessment model) the patient's lifetime risk is 8.7% and her 10 year risk is 5.5%. According to the ACR, ACS, and NCCN guidelines, an annual breast MRI exam along with mammogram is recommended if the patient's lifetime risk is 20% or greater. This exam was interpreted at Station ID: [id number]. NOTE: For mammograms, a report in lay terms will be sent to the patient. Approximately 15% of breast malignancies will not be visualized mammographically. In the management of a palpable breast mass, a negative mammogram must not discourage biopsy of a clinically suspicious lesion. Electronically Signed By: Roshan campos/bandar:02/13/2022 16:03:49 letter sent: Normal Exam ACR BI-RADS Category 1: Negative 3341F
== END ==
PROVIDERS: PCP Family Medicine; Referring Provider Family Medicine; Visit Provider Family Medicine
DX: Z12.31 Encounter for screening mammogram for malignant neoplasm of breast (principal)
CPT/HCPCS: 77063; 77067

== ENCOUNTER → 2022-03-23 11:23 | Outpatient (CLI) | payer MEDICARE, OTHER, SELFPAY | PROVIDERS: PCP Family Medicine; Referring Provider Internal Medicine; Visit Provider Internal Medicine | DX: Z23 Encounter for immunization (principal) | CPT/HCPCS: 90471; 90662 ==

== ENCOUNTER → 2022-04-03 16:26 | Outpatient (CLI) | payer MEDICARE, OTHER, SELFPAY ==
[2022-04-05 12:32] LABS: Fecal Immunochemical Test Negative (Negative)
== END ==
PROVIDERS: PCP Family Medicine; Referring Provider Family Medicine; Visit Provider Family Medicine
DX: Z12.11 Encounter for screening for malignant neoplasm of colon (principal)
CPT/HCPCS: 82274

== ENCOUNTER → 2023-02-21 14:19 | Outpatient (CLI) | payer MEDICARE, OTHER, SELFPAY ==
--- NOTE | 2023-02-21 | DI.MG.S_ITS ---
BILATERAL DIGITAL SCREENING MAMMOGRAM 3D/2D WITH CAD: 02/21/2023 CLINICAL: Routine screening. Comparison is made to exams dated: 02/13/2022 mammogram, 02/10/2021 mammogram, and 02/02/2020 mammogram - [facility]. Both breasts are heterogeneously dense, which may obscure small masses (category c / 51-75% glandular tissue). Current study was also evaluated with a Computer Aided Detection (CAD) system. No significant masses, calcifications, or other findings are seen in either breast. There has been no significant interval change. IMPRESSION: NEGATIVE There is no mammographic evidence of malignancy. A 1 year screening mammogram is recommended. Based on the Tyrer Cuzick model (a risk assessment model) the patient's lifetime risk is 8.2% and her 10 year risk is 5.7%. According to the ACR, ACS, and NCCN guidelines, an annual breast MRI exam along with mammogram is recommended if the patient's lifetime risk is 20% or greater. This exam was interpreted at Station ID: [id number]. NOTE: For mammograms, a report in lay terms will be sent to the patient. Approximately 15% of breast malignancies will not be visualized mammographically. In the management of a palpable breast mass, a negative mammogram must not discourage biopsy of a clinically suspicious lesion. Electronically Signed By: Melonie ibrahim/bandar:02/21/2023 16:55:47 letter sent: Normal Exam ACR BI-RADS Category 1: Negative 3341F
== END ==
PROVIDERS: PCP Student in an Organized Health Care Education/Training Program; Referring Provider Student in an Organized Health Care Education/Training Program; Visit Provider Student in an Organized Health Care Education/Training Program
DX: Z12.31 Encounter for screening mammogram for malignant neoplasm of breast (principal)
CPT/HCPCS: 77063; 77067

== ENCOUNTER → 2023-12-10 10:07 | Outpatient (CLI) | payer MEDICARE, OTHER, SELFPAY | PROVIDERS: PCP Student in an Organized Health Care Education/Training Program; Visit Provider Physician Assistant Surgical | DX: R30.0 Dysuria (principal) | CPT/HCPCS: 87077; 87086; 87186 ==

== ENCOUNTER 2024-02-04 10:07 | Day surgery (SDC) | payer MEDICARE, OTHER, SELFPAY ==
[2024-02-04 10:50] VITALS: BP 153/23; PULSE 58; RESP 16; TEMP 36.8; O2SAT 100
[2024-02-04] MEDS: LACTATED RINGERS 1,000 ML 42 ML IV (10:57)
--- NOTE | 2024-02-04 11:37 | PM.HP.1 ---
History of Present Illness History of Present Illness Date Patient Seen: 02/04/24 Time Patient Seen: 11:37 Chief complaint: Colonoscopy Narrative: 73-year-old woman here for diagnostic colonoscopy secondary to rectal bleeding. 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 No family history of colon cancer. Last colonoscopy was perhaps age 41 [facility] Medical History (Updated 01/07/24 @ 13:53 by Bessie Tapia MD) Osteopenia TMJ (temporomandibular joint disorder) Vision disorder Bowel perforation (~1973) Measles (~1956) Chicken pox Factor V Leiden Vertigo (~2009) Tinnitus Hearing loss Genital warts (~1980) Abnormal Pap smear of cervix (~2009) Surgical History (Updated 01/07/24 @ 13:53 by Bessie Tapia MD) Anesthesia Fractures Status post colostomy (~1973) Family History Father No problems noted. Mother No problems noted. 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[employer]) Smoking Status: Never smoker alcohol intake: current substance use type: does not use additional social history: Alcoholic beverage intake 2-3 time per month Meds Home Medications and Allergies Home Medications Medication Instructions Recorded Confirmed Type Mouth Guard #1 ea 04/16/18 01/07/24 Rx SEE SCAN FROM 04/21/18 FOR See Rx Instructions .Route 04/21/18 01/07/24 Rx VITAMINS/SUPPLEMENTS .COMPLEX ##1 alpha lipoic acid 200 mg capsule 200 mg PO DAILY 03/25/23 01/07/24 History ascorbate calcium (vitamin C) 500 500 mg PO DAILY 03/25/23 01/07/24 History mg tablet cholecalciferol (vitamin D3) 250 250 mcg PO DAILY 03/25/23 01/07/24 History mcg (10,000 unit) capsule mecobalamin (vitamin B12) 1,000 1,000 mcg PO DAILY 03/25/23 01/07/24 History mcg lozenges resveratrol 100 mg capsule mg PO 03/25/23 01/07/24 History Allergies Allergy/AdvReac Type Severity Reaction Status Date / Time hydromorphone [From Dilaudid] Allergy Intermediate Anaphylaxis Verified 02/04/24 10:33 clindamycin [CLINDAMYCIN] Allergy Unknown Verified 02/04/24 10:33 pentazocine [From TALWIN] Allergy Unknown Verified 02/04/24 10:33 Sulfa (Sulfonamide Allergy Unknown Rash Verified 02/04/24 11:14 Antibiotics) Exam Vital Signs (past 8 hours): - 02/04/24 10:50 Temperature 98.2 F Pulse Rate 58 L Respiratory Rate 16 Blood Pressure 153/23 H Pulse Oximetry 100 Oxygen Delivery Method Room Air Oxygen Delivery Method Room Air Narrative Exam Narrative: General adult woman alert oriented no acute distress Chest nonlabored respiration Extremities warm well perfused Assessment & Plan Assessment and plan (1) Blood in stool: Status: Acute Assessment & Plan narrative: Diagnostic colonoscopy indicated. Technical details were discussed. Risks, benefits, alternatives explained. Risks including but not limited to myocardial infarction, aspiration, bleeding, pain, missed lesion, incomplete examination, need for further radiographic studies, intestinal injury, and need for major abdominal surgery were discussed. All questions were answered to their satisfaction, and they are in agreement with this plan. Time-Based Coding :: [TOTAL MINUTES] spent with patient and on the chart (including review of chart, obtaining history, exam, reviewing outside data, placing orders, documenting exam and treatment plan, and counseling patient) on [DATE].
--- NOTE | 2024-02-04 11:42 | P.OP.COLON_ITS ---
Operative Date/Time/Diagnoses Date of procedure: 02/04/24 Time of procedure: 11:42 Pre-op diagnosis: Rectal bleeding Procedure & Clinicians Study performed: Diagnostic colonoscopy Same procedure as scheduled: Yes Indications: Rectal bleeding Surgeon: Ady Hooks Procedure Notes Procedure in detail: The history and physical was performed/updated and the patient is ASA class is 2. The procedure was discussed in detail with the patient. Potential risks complications including infection, bleeding, missed diagnosis, perforation, need for surgery, and were explained. Their questions were answered and informed consent was obtained. Patient was brought to the procedure room and placed standard monitoring equipment. The patient's vital signs were monitored continuously throughout the entire procedure. Prior to starting time-out was performed. The patient was placed in the left lateral recumbent position. Procedural sedation was administered by anesthesia. Examination began with a thorough inspection of the perianal area there was no evidence of fissures, fistulae, external hemorrhoids or cutaneous malignancy. The colonoscopy scope was then placed into the anal canal and was advanced to the cecum, which was identified by the ileocecal kamilla ve, the appendiceal orifice and the confluence of the taenia. The scope was then slowly withdrawn examining colon thoroughly in all directions, irrigating it of any residual stool. The scope was retroflexed within the rectum The patient tolerated the procedure well. They will be discharged once criteria are met. The prep was of good/excellent quality. The withdrawl time was 8 minutes. FINDINGS * Unremarkable colonoscopy. Normal healthy colonic mucosa without mass or polyps. * Normal colon anastomosis * Internal hemorrhoids Specimen(s): none sent Impression: Internal hemorrhoids Post-procedure Recommendations: High fiber diet Plan for aftercare: No need for further colonoscopy unless symptomatic Disposition: same day surgery
[2024-02-04 12:04] VITALS: BP 102/63; PULSE 58; RESP 17; TEMP 36.3; O2SAT 99
[2024-02-04 12:11] VITALS: BP 97/59; PULSE 66; RESP 22; TEMP 36.3; O2SAT 98
[2024-02-04 12:20] VITALS: BP 111/65; PULSE 66; RESP 15; TEMP 36.3; O2SAT 98
== END 2024-02-04 12:25 | disposition home or self-care (01) ==
PROVIDERS: PCP Student in an Organized Health Care Education/Training Program; Referring Provider Surgery; Visit Provider Surgery
PROC: 0DJD8ZZ Inspection of Lower Intestinal Tract, Via Natural or Artificial Opening Endoscopic (ICD-10-PCS; CPT 45378; principal; 2024-02-04 11:15)
DX: K62.5 Hemorrhage of anus and rectum (principal); K64.8 Other hemorrhoids
CPT/HCPCS: 45378; J2704

== ENCOUNTER → 2024-04-10 14:50 | Outpatient (CLI) | payer MEDICARE, OTHER, SELFPAY ==
--- NOTE | 2024-04-10 14:51 | DI.MG.S_ITS ---
BILATERAL DIGITAL SCREENING MAMMOGRAM 3D/2D WITH CAD: 04/10/2024 CLINICAL: Routine screening. Comparison is made to exams dated: 02/21/2023 mammogram, 02/13/2022 mammogram, and 02/10/2021 mammogram - [facility]. The breasts are heterogeneously dense, which may obscure small masses (category c / 51-75% glandular tissue). Current study was also evaluated with a Computer Aided Detection (CAD) system. No significant masses, calcifications, or other findings are seen in either breast. There has been no significant interval change. IMPRESSION: NEGATIVE There is no mammographic evidence of malignancy. A 1 year screening mammogram is recommended. Based on the Tyrer Cuzick model (a risk assessment model) the patient's lifetime risk is 7.8% and her 10 year risk is 5.8%. According to the ACR, ACS, and NCCN guidelines, an annual breast MRI exam along with mammogram is recommended if the patient's lifetime risk is 20% or greater. This exam was interpreted at Station ID: [id number]. NOTE: For mammograms, a report in lay terms will be sent to the patient. Approximately 15% of breast malignancies will not be visualized mammographically. In the management of a palpable breast mass, a negative mammogram must not discourage biopsy of a clinically suspicious lesion. Electronically Signed By: Jr barrera/bandar:04/10/2024 16:29:37 letter sent: Normal Exam ACR BI-RADS Category 1: Negative
== END ==
LOC: MAMMO 14:51
PROVIDERS: PCP Student in an Organized Health Care Education/Training Program; Referring Provider Student in an Organized Health Care Education/Training Program; Visit Provider Student in an Organized Health Care Education/Training Program
DX: Z12.31 Encounter for screening mammogram for malignant neoplasm of breast (principal); R92.333 Mammographic heterogeneous density, bilateral breasts
CPT/HCPCS: 77063; 77067

== ENCOUNTER → 2024-08-04 11:00 | Outpatient (CLI) | payer MEDICARE, OTHER, SELFPAY ==
--- NOTE | 2024-08-04 11:03 | DI.RAD.S_ITS ---
PROCEDURE: XR HIP W PEL IF DONE LT 2V INDICATIONS: left hip pain TECHNIQUE: AP pelvis with lateral view(s) of the left hip(s). COMPARISON: None. FINDINGS: Bones: No fractures or dislocations. 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 Pelvic ring appears intact. No suspicious bony lesions. Soft tissues: The visualized bowel gas pattern is normal. No suspicious soft tissue calcifications. IMPRESSION: Degenerative change of the left hip without evidence of acute bony abnormality. Dictated by: rPitesh Ventura M.D. on 08/05/2024 at 2:00 Approved by: Pritesh Ventura M.D. on 08/05/2024 at 2:01
[2024-08-04 12:05] LABS: Add Manual Diff / Slide Review NO; Basophils Absolute Auto 100 /uL (0-100); Basophils Percent Auto 1.9 % (0-2); Eosinophils Absolute Auto 100 /uL (0-450); Hematocrit 40.1 % (36-46); Hemoglobin 13.7 g/dL (12.0-16.0); Lymphocytes Absolute Auto 1200 /uL (1100-4500); Mean Corpuscular HGB Conc 34.2 % (30-36); Mean Corpuscular Hemoglobin 31.1 PG (26-34); Mean Corpuscular Volume 90.9 fL (80-100); Monocytes Absolute Auto 400 /uL (0-900); Monocytes Percent Auto 9.3 % (3-14); Neutrophils Absolute Auto 2500 /uL (1500-7000); Neutrophils Percent Auto 57.8 % (50-75); Platelet Count 210 X10^3/uL (150-400); Red Blood Cell Count 4.41 X10^6/uL (4.0-5.2); Red Cell Distribution Width 13.6 % (11.6-14.8); White Blood Cell Count 4.3 X10^3/uL (4.5-11.0)
[2024-08-04 12:18] LABS: HEMOLYSIS < 15 (0-50); Iron 101 ug/dL (37-170)
[2024-08-04 12:20] LABS: Alanine Aminotransferase 23 IU/L (<35); Albumin 4.5 g/dL (3.5-5.0); Albumin Globulin Ratio 1.6 (1.0-2.8); Alkaline Phosphatase 127 U/L (38-126); Aspartate Aminotransferase 33 IU/L (14-36); Bilirubin Total 0.8 mg/dL (0.2-1.3); Blood Urea Nitrogen 14 mg/dL (7-17); Calcium 9.8 mg/dL (8.4-10.2); Carbon Dioxide 29 mmol/L (22-32); Chloride 106 mmol/L (98-107); Estimated Glomerular Filt Rate > 60 mL/min (>60); Globulin 2.8 g/dL (1.7-4.1); Glucose 91 mg/dL (80-110); HEMOLYSIS < 15 (0-50); Potassium 5.1 mmol/L (3.4-5.1); Sodium 142 mmol/L (137-145); Total Protein 7.3 g/dL (6.3-8.2)
[2024-08-04 12:28] LABS: Percent Iron Saturation 41 % (15-50); Total Iron Binding Capacity 246 ug/dL (265-497); Transferrin 192 mg/dL (206-381)
[2024-08-04 12:51] LABS: Thyroid Stimulating Hormone 0.166 uIU/mL (0.47-4.68)
[2024-08-04 12:53] LABS: Ferritin 33 ng/mL (11-264)
== END ==
PROVIDERS: PCP Student in an Organized Health Care Education/Training Program; Referring Provider Student in an Organized Health Care Education/Training Program; Visit Provider Student in an Organized Health Care Education/Training Program
DX: R53.83 Other fatigue; M25.552 Pain in left hip; M89.8X8 Other specified disorders of bone, other site
CPT/HCPCS: 36415; 73502; 80053; 82728; 83540; 83550; 84443; 85025

== ENCOUNTER → 2024-08-08 11:17 | Outpatient (CLI) | payer MEDICARE, OTHER, SELFPAY ==
[2024-08-08 12:43] LABS: Cholesterol 233 mg/dL (140-199); HDL Cholesterol 71 mg/dL (40-60); LDL Cholesterol Calculated 147 mg/dL (<100); Triglycerides 75 mg/dL (35-150)
== END ==
PROVIDERS: Family Provider Student in an Organized Health Care Education/Training Program; PCP Student in an Organized Health Care Education/Training Program; Referring Provider Student in an Organized Health Care Education/Training Program; Visit Provider Student in an Organized Health Care Education/Training Program
DX: Z13.220 Encounter for screening for lipoid disorders (principal)
CPT/HCPCS: 36415; 80061

== ENCOUNTER 2024-10-01 13:00 | Outpatient (RCR) | payer MEDICARE, OTHER, SELFPAY ==
--- NOTE | 2024-09-01 16:15 | PT.OIE ---
Current Diagnoses Pain in left hip (09/01/24) Difficulty in walking, not elsewhere classified (09/01/24) Weakness (09/01/24) Past Medical History (Last Reviewed 12/07/22 @ 12:35 by Karma Silva PA-C) Abnormal Pap smear of cervix (~2009) Bowel perforation (~1973) Chicken pox Factor V Leiden Genital warts (~1980) Hearing loss Measles (~1956) Osteopenia Tinnitus TMJ (temporomandibular joint disorder) Vertigo (~2009) Vision disorder Past Surgical History (Last Reviewed 12/07/22 @ 12:35 by Karma Silva PA-C) Anesthesia Fractures Status post colostomy (~1973) Visit Care Team Role Provider Type Bessie Tapia MD Attending Provider Physician Family Provider Primary Care Provider Referring Provider Specialty: Family Practice Obstetrics Address: [address] [place] [address], [facility] Email: [email or web address] Physical Therapy Initial Evaluation PT-OP-A Visit Information Start: 08/31/24 16:40 Freq: Status: Active Protocol: Document 09/01/24 11:26 SAK (Rec: 09/01/24 12:16 SAK Laptop) Out-Patient Physical Therapy Visit Information Visit Information Visit Type Initial Evaluation Visit Start Time 11:30 Visit Number 1 Evaluation Information Evaluation Date 09/01/24 PT-OP-B Current Condition Start: 08/31/24 16:40 Freq: Status: Active Protocol: Document 09/01/24 11:26 SAK (Rec: 09/01/24 12:16 SAK Laptop) Current Condition History of Current Condition Onset Date May 2024 Current Complaints L hip pain History of Current Condition Onset right elbow and left hip pain. Given exercises for elbow and in chart reported do exercises, d/c push ups and follow up. Does counter push ups due to wrist issues. 80% better. Left hip pain occasional; increases with turning. Has tried walking more gently, not as fast. Does online sara (Fit with Zof[employer] pilates and weights) including squats, lunges 1-2x/ wk. 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 Sits with legs crossed some, but alternates which leg, left leg more flexible. Sleeps both sides, no use of pillows. Is right handed, tries to engage core and get left side to do more. Prior Treatments and Tests x-ray: moderate arthritis PT-OP-C Subjective Start: 08/31/24 16:40 Freq: Status: Active Protocol: Document 09/01/24 11:26 SAK (Rec: 09/01/24 14:27 SAK Laptop) Patient Questionnaires Lower Extremity Functional Scale LEFS Score 75 OP-PT Pain Assessment Pain Assessment Grid Paper Pain Assessment Grid Completed Yes Location anterior left hip Intensity 6 PT-OP-G Mobility & Gait Start: 08/31/24 16:40 Freq: Status: Active Protocol: Document 09/01/24 11:26 SAK (Rec: 09/01/24 14:27 [facility] Laptop) OP Mobility Evaluation Functional Movements Squats able to return to stand without using hands OP Gait Assessment Gait Gait Assistance Required: Independent Assistive Devices Assistive Device None Gait Deviations General Gait Pattern Within Normal Limits Comments Gait Comments decreased gluteal engagement, quad dominant pattern PT-OP-H Neuro Start: 08/31/24 16:40 Freq: Status: Active Protocol: Document 09/01/24 11:26 SAK (Rec: 09/01/24 14:27 [facility] Laptop) Sensation Evaluation Gross Sensation Gross Sensation WNL PT-OP-J Posture/Palpation/Skin Start: 08/31/24 16:40 Freq: Status: Active Protocol: Document 09/01/24 11:26 SAK (Rec: 09/01/24 12:16 SAK Laptop) Posture Evaluation Position Standing Arm Posture (L) Internally Rotated,(R) Internally Rotated Pelvis Posture Posterior Tilted Hip Posture (R) Neutral,(L) Externally Rotated Foot Arch (L) Low Arch,(R) Low Arch Palpation Assessment Location left piriformis Palpation Findings Soft Tissue Tightness PT-OP-K Range of Motion Start: 08/31/24 16:40 Freq: Status: Active Protocol: Document 09/01/24 11:26 SAK (Rec: 09/01/24 14:27 [facility] Laptop) Lumbar Spine Range of Motion Lumbar Spine Active Testing Position Standing Comments WFL Hip Goniometric Range of Motion Hip Left Hip ROM WFL Yes Right Hip ROM WFL Yes Hip ROM Limitations Comments mild tightnes yadira iliopsoas and quads Knee Goniometric Range of Motion Knee yadira Knee ROM WFL Yes Ankle and Foot Goniometric Range of Motion Ankle and Foot yadira Ankle/Foot ROM WFL Yes PT-OP-L Special Tests Start: 08/31/24 16:40 Freq: Status: Active Protocol: Document 09/01/24 11:26 SAK (Rec: 09/01/24 14:27 SAK Laptop) Special Tests Hip Special Tests Scour Test Test Results + Hip IR:ER Ratios Test Results - Straight Leg Raise Test Results - PT-OP-M Strength Start: 08/31/24 16:40 Freq: Status: Active Protocol: Document 09/01/24 11:26 SAK (Rec: 09/01/24 16:14 SAK Laptop) Hip Strength Hip Manual Muscle Testing Left Flexion (L2) 4- Good- Extension (S1) 3+ Fair+ Abduction 4- Good- Adduction 4- Good- External Rotation 3+ Fair+ Internal Rotation 4- Good- Right Flexion (L2) 4 Good Extension (S1) 4 Good Abduction 4 Good Adduction 4 Good External Rotation 4- Good- Internal Rotation 4 Good Knee Strength Knee Manual Muscle Testing yadira Flexion (S2) 4+ Good+ Extension (L3) 4+ Good+ PT-OP-Q Treatments Start: 08/31/24 16:40 Freq: Status: Active Protocol: Document 09/01/24 11:26 [facility] (Rec: 09/01/24 14:27 [facility] Laptop) Self-Care/Home Management Treatment Education Patient Education Home Exercise Program Other Education reviewed HEP, instructed in s/ l clam and hip abd, Henrry stretch and prone quad stretch . Educated need for self assessment habitual positioning and movement that could be aggravating left hip PT-OP-T Assessment and Plan Start: 08/31/24 16:40 Freq: Status: Active Protocol: Document 09/01/24 11:26 [facility] (Rec: 09/01/24 14:27 [facility] Laptop) Physical Therapy Assessment Rehab Potential Rehabilitation Potential Good Evaluation Complexity Number of Personal Factors/Comorbidities 1-2 Number of Body Systems Impaired 3 Clinical Presentation at Evaluation Stable Impairments Impairments Activity Tolerance,Pain, Strength Goals Three Impairment lower extremity functional scale 75% [facility]pc Goal (LTG) Improve LEFS score to at least 85% as measure of improved activity tolerance and left hip function LTG Duration 11/01/24 Two Impairment weakness ydaira hips left greater than right Short Term Goal (STG) Patient to be instructed in progressive, individualized HEP for purposes of hip strengthening and functional task performance STG Duration 10/01/24 Senior Industrial Engineer Goal (LTG) Patient to be independent and compliant with HEP with correct performance and demonstrate improvement in hip strength to 5/5 LTG Duration 11/01/24 One Impairment pain left hip as high as 6/10 [facility] Goal (LTG) decrease pain to no greater than 2/10 with all usual activities including gardening and taking walks LTG Duration 11/01/24 Assessment Summary Assessment Patient presents to PT with function-limiting pain left hip with unknown cause. x-ray showed moderate arthritis. Evaluation revealed weakness in hip ab and ER yadira left greater than right and ilipsoas and quad tightness left greater than right. Patient is very active and we reviewed some of her exercises with verbal and tactile cues for correct performance; feel will need to address further. Patient instructed to do self assessment of habitual positioning and movements as well. Feel she will benefit from PT to address above impairments and allow her to return to prior level of function. Patient is highly motivated. POC was discussed and patient was in agreement. Physical Therapy Plan Frequency and Duration Frequency of Treatment 2x/Week Duration of treatment (weeks) 8 Plan of Care Start Date 09/01/24 Plan of Care End Date 11/01/24 Therapeutic Interventions Therapeutic Interventions Gait Training,Home Exercise Program,Manual Therapy,Patient /Caregiver Education,Self-Care /Home Management,Soft Tissue Mobilization,Taping, Therapeutic Activities, Therapeutic Exercises Modalities Cold Pack/Ice Massage,Electric Stimulation,Hot Packs, Infrared Therapy,Ultrasound Next Visit Focus/Plan Next Note Type Treatment Note Next Visit Plan Review HEP, further review of patient prior exercise activities and discuss self assessment. Progress HEP as indicated. Manual therapy and modalities PRN pain.
--- NOTE | 2024-09-01 16:15 | PT.OPPOC ---
Physical, Occupational & Speech Therapy At [facility] Current Diagnoses Pain in left hip (09/01/24) Difficulty in walking, not elsewhere classified (09/01/24) Weakness (09/01/24) Visit Care Team Role Provider Type Bessie Tapia MD Attending Provider Physician Family Provider Primary Care Provider Referring Provider Specialty: Family Practice Obstetrics Address: [address] [place] [address], [employer] Email: [email or web address] Plan Of Care PT-OP-B Current Condition Start: 08/31/24 16:40 Freq: Status: Active Protocol: Document 09/01/24 11:26 SAK (Rec: 09/01/24 12:16 SAK Laptop) Current Condition History of Current Condition Onset Date May 2024 Current Complaints L hip pain History of Current Condition Onset right elbow and left hip pain. Given exercises for elbow and in chart reported do exercises, d/c push ups and follow up. Does counter push ups due to wrist issues. 80% better. Left hip pain occasional; increases with turning. Has tried walking more gently, not as fast. Does online sara (Fit with Zofia pilates and weights) including squats, lunges 1-2x/ wk. 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 Sits with legs crossed some, but alternates which leg, left leg more flexible. Sleeps both sides, no use of pillows. Is right handed, tries to engage core and get left side to do more. Prior Treatments and Tests x-ray: moderate arthritis PT-OP-T Assessment and Plan Start: 08/31/24 16:40 Freq: Status: Active Protocol: Document 09/01/24 11:26 SAK (Rec: 09/01/24 14:27 SAK Laptop) Physical Therapy Assessment Rehab Potential Rehabilitation Potential Good Evaluation Complexity Number of Personal Factors/Comorbidities 1-2 Number of Body Systems Impaired 3 Clinical Presentation at Evaluation Stable Impairments Impairments Activity Tolerance,Pain, Strength Goals Three Impairment lower extremity functional scale 75% Managed Care Nurse Goal (LTG) Improve LEFS score to at least 85% as measure of improved activity tolerance and left hip function LTG Duration 11/01/24 Two Impairment weakness yadira hips left greater than right Short Term Goal (STG) Patient to be instructed in progressive, individualized HEP for purposes of hip strengthening and functional task performance STG Duration 10/01/24 [facility] Goal (LTG) Patient to be independent and compliant with HEP with correct performance and demonstrate improvement in hip strength to 5/5 LTG Duration 11/01/24 One Impairment pain left hip as high as 6/10 [facility] Goal (LTG) decrease pain to no greater than 2/10 with all usual activities including gardening and taking walks LTG Duration 11/01/24 Assessment Summary Assessment Patient presents to PT with function-limiting pain left hip with unknown cause. x-ray showed moderate arthritis. Evaluation revealed weakness in hip ab and ER yadira left greater than right and ilipsoas and quad tightness left greater than right. Patient is very active and we reviewed some of her exercises with verbal and tactile cues for correct performance; feel will need to address further. Patient instructed to do self assessment of habitual positioning and movements as well. Feel she will benefit from PT to address above impairments and allow her to return to prior level of function. Patient is highly motivated. POC was discussed and patient was in agreement. Physical Therapy Plan Frequency and Duration Frequency of Treatment 2x/Week Duration of treatment (weeks) 8 Plan of Care Start Date 09/01/24 Plan of Care End Date 11/01/24 Therapeutic Interventions Therapeutic Interventions Gait Training,Home Exercise Program,Manual Therapy,Patient /Caregiver Education,Self-Care /Home Management,Soft Tissue Mobilization,Taping, Therapeutic Activities, Therapeutic Exercises Modalities Cold Pack/Ice Massage,Electric Stimulation,Hot Packs, Infrared Therapy,Ultrasound Next Visit Focus/Plan Next Note Type Treatment Note Next Visit Plan Review HEP, further review of patient prior exercise activities and discuss self assessment. Progress HEP as indicated. Manual therapy and modalities PRN pain. Plan of Care Dates Plan of Care Start Date 09/01/24 Plan of Care End Date 11/01/24 Electronically Signed by: Devika Estrada PT 09/01/24 2337 If you are in agreement with this Plan of Care, please return a signed and dated copy. I have reviewed this Plan of Care and certify that the skilled therapy services above are required to meet the patient?s needs. Physician Signature Date Printed Name and Credentials Clinical Instructor Signature Printed Name and Credentials
--- NOTE | 2024-09-08 16:38 | PT.OTN ---
Current Diagnoses Pain in left hip (09/08/24) Difficulty in walking, not elsewhere classified (09/08/24) Weakness (09/08/24) Physical Therapy Treatment Note PT-OP-A Visit Information Start: 08/31/24 16:40 Freq: Status: Active Protocol: Document 09/08/24 16:31 SAK (Rec: 09/08/24 16:38 SAK Laptop) Out-Patient Physical Therapy Visit Information Visit Information Visit Type Treatment Note Visit Start Time 14:30 Visit Stop Time 15:16 Visit Number 2 PT-OP-B Current Condition Start: 08/31/24 16:40 Freq: Status: Active Protocol: Document 09/08/24 16:31 SAK (Rec: 09/08/24 16:38 SAK Laptop) Current Condition History of Current Condition Onset Date May 2024 Current Complaints L hip pain History of Current Condition Onset right elbow and left hip pain. Given exercises for elbow and in chart reported do exercises, d/c push ups and follow up. Does counter push ups due to wrist issues. 80% better. Left hip pain occasional; increases with turning. Has tried walking more gently, not as fast. Does online sara (Fit with Zofia pilates and weights) including squats, lunges 1-2x/ wk. 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 Sits with legs crossed some, but alternates which leg, left leg more flexible. Sleeps both sides, no use of pillows. Is right handed, tries to engage core and get left side to do more. Prior Treatments and Tests x-ray: moderate arthritis PT-OP-C Subjective Start: 08/31/24 16:40 Freq: Status: Active Protocol: Document 09/08/24 16:31 SAK (Rec: 09/08/24 16:38 SAK Laptop) OP-PT Subjective Patient Comments Patient Comments Patient reports compliant to HEP, paying more attention to postural habits, core stab. PT-OP-G Mobility & Gait Start: 08/31/24 16:40 Freq: Status: Active Protocol: Document 09/01/24 11:26 SAK (Rec: 09/01/24 14:27 SAK Laptop) OP Mobility Evaluation Functional Movements Squats able to return to stand without using hands OP Gait Assessment Gait Gait Assistance Required: Independent Assistive Devices Assistive Device None Gait Deviations General Gait Pattern Within Normal Limits Comments Gait Comments decreased gluteal engagement, quad dominant pattern PT-OP-H Neuro Start: 08/31/24 16:40 Freq: Status: Active Protocol: Document 09/01/24 11:26 [facility] (Rec: 09/01/24 14:27 [facility] Laptop) Sensation Evaluation Gross Sensation Gross Sensation WNL PT-OP-J Posture/Palpation/Skin Start: 08/31/24 16:40 Freq: Status: Active Protocol: Document 09/01/24 11:26 [facility] (Rec: 09/01/24 12:16 [facility] Laptop) Posture Evaluation Position Standing Arm Posture (L) Internally Rotated,(R) Internally Rotated Pelvis Posture Posterior Tilted Hip Posture (R) Neutral,(L) Externally Rotated Foot Arch (L) Low Arch,(R) Low Arch Palpation Assessment Location left piriformis Palpation Findings Soft Tissue Tightness PT-OP-K Range of Motion Start: 08/31/24 16:40 Freq: Status: Active Protocol: Document 09/01/24 11:26 [facility] (Rec: 09/01/24 14:27 [facility] Laptop) Lumbar Spine Range of Motion Lumbar Spine Active Testing Position Standing Comments WFL Hip Goniometric Range of Motion Hip Left Hip ROM WFL Yes Right Hip ROM WFL Yes Hip ROM Limitations Comments mild tightnes yadira iliopsoas and quads Knee Goniometric Range of Motion Knee yadira Knee ROM WFL Yes Ankle and Foot Goniometric Range of Motion Ankle and Foot yadira Ankle/Foot ROM WFL Yes PT-OP-L Special Tests Start: 08/31/24 16:40 Freq: Status: Active Protocol: Document 09/01/24 11:26 [facility] (Rec: 09/01/24 14:27 [facility] Laptop) Special Tests Hip Special Tests Scour Test Test Results + Hip IR:ER Ratios Test Results - Straight Leg Raise Test Results - PT-OP-M Strength Start: 08/31/24 16:40 Freq: Status: Active Protocol: Document 09/01/24 11:26 [facility] (Rec: 09/01/24 16:14 [facility] Laptop) Hip Strength Hip Manual Muscle Testing Left Flexion (L2) 4- Good- Extension (S1) 3+ Fair+ Abduction 4- Good- Adduction 4- Good- External Rotation 3+ Fair+ Internal Rotation 4- Good- Right Flexion (L2) 4 Good Extension (S1) 4 Good Abduction 4 Good Adduction 4 Good External Rotation 4- Good- Internal Rotation 4 Good Knee Strength Knee Manual Muscle Testing yadira Flexion (S2) 4+ Good+ Extension (L3) 4+ Good+ PT-OP-Q Treatments Start: 08/31/24 16:40 Freq: Status: Active Protocol: Document 09/08/24 16:31 [facility] (Rec: 09/08/24 16:38 [facility] Laptop) Cardio Equipment Recumbent Stepper (Sci-Fit) Duration (Minutes) 5 Resistance 2-7 Seat Position 6 Other NuStep, cues for neutral LE's Gym Equipment Cable Column (Body Solid) HS curl Details yadira,unil Resistance 20,10 Reps/Time 2x10 ea Shuttle Recovery Unilateral Squats Resistance 25 Reps/Time 10x2 Bilateral Squats Resistance 50 Shuttle Recovery Platform Stable Reps/Time 10x2 Therapeutic Exercises Supine Exercises bridge Supine Exercise Name double and single(verbal review) Prone Exercises quad stretch Equipment Used strap Reps/Minutes 2x30 Sidelying Exercises clamshell Equipment Used wall Reps/Minutes 10x Comments more challenging left hip ab Equipment Used wall Reps/Minutes 10 Comments more challenging left Sitting Exercises HS curl Equipment Used L2 TB Reps/Minutes 10x Comments instrsucted for HEP Self-Care/Home Management Treatment Education Other Education updated HEP HO PT-OP-T Assessment and Plan Start: 08/31/24 16:40 Freq: Status: Active Protocol: Document 09/08/24 16:31 [facility] (Rec: 09/08/24 16:38 [facility] Laptop) Physical Therapy Assessment Impairments Impairments Activity Tolerance,Pain, Strength Goals Three Impairment lower extremity functional scale 75% [place] Goal (LTG) Improve LEFS score to at least 85% as measure of improved activity tolerance and left hip function LTG Duration 11/01/24 Two Impairment weakness yadira hips left greater than right Short Term Goal (STG) Patient to be instructed in progressive, individualized HEP for purposes of hip strengthening and functional task performance STG Duration 10/01/24 [facility] Goal (LTG) Patient to be independent and compliant with HEP with correct performance and demonstrate improvement in hip strength to 5/ LTG Duration 11/01/24 One Impairment pain left hip as high as 6/10 [place] Goal (LTG) decrease pain to no greater than 2/10 with all usual activities including gardening and taking walks LTG Duration 11/01/24 Physical Therapy Plan Frequency and Duration Frequency of Treatment 2x/Week Duration of treatment (weeks) 8 Plan of Care Start Date 09/01/24 Plan of Care End Date 11/01/24 Therapeutic Interventions Therapeutic Interventions Gait Training,Home Exercise Program,Manual Therapy,Patient /Caregiver Education,Self-Care /Home Management,Soft Tissue Mobilization,Taping, Therapeutic Activities, Therapeutic Exercises Modalities Cold Pack/Ice Massage,Electric Stimulation,Hot Packs, Infrared Therapy,Ultrasound Next Visit Focus/Plan Next Note Type Treatment Note Next Visit Plan Review HEP, further review of patient prior exercise activities and discuss self assessment. Progress HEP as indicated. Manual therapy and modalities PRN pain.
--- NOTE | 2024-09-10 18:03 | PT.OTN ---
Current Diagnoses Pain in left hip (09/10/24) Difficulty in walking, not elsewhere classified (09/10/24) Weakness (09/10/24) Physical Therapy Treatment Note PT-OP-A Visit Information Start: 08/31/24 16:40 Freq: Status: Active Protocol: Document 09/10/24 14:24 AB (Rec: 09/10/24 18:03 AB Laptop) Out-Patient Physical Therapy Visit Information Visit Information Visit Type Treatment Note Visit Note Access Code: [email or web address] Visit Start Time 14:33 Visit Stop Time 15:19 Visit Number 3 Number of C APPLICATION DEVELOPER Visits 1 PT-OP-B Current Condition Start: 08/31/24 16:40 Freq: Status: Active Protocol: Document 09/08/24 16:31 SAK (Rec: 09/08/24 16:38 SAK Laptop) Current Condition History of Current Condition Onset Date May 2024 Current Complaints L hip pain History of Current Condition Onset right elbow and left hip pain. Given exercises for elbow and in chart reported do exercises, d/c push ups and follow up. Does counter push ups due to wrist issues. 80% better. Left hip pain occasional; increases with turning. Has tried walking more gently, not as fast. Does online sara (Fit with Zofia pilates and weights) including squats, lunges 1-2x/ wk. 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 Sits with legs crossed some, but alternates which leg, left leg more flexible. Sleeps both sides, no use of pillows. Is right handed, tries to engage core and get left side to do more. Prior Treatments and Tests x-ray: moderate arthritis PT-OP-C Subjective Start: 08/31/24 16:40 Freq: Status: Active Protocol: Document 09/10/24 14:24 AB (Rec: 09/10/24 18:03 AB Laptop) OP-PT Subjective Patient Comments Patient Comments Patient reports she had a lot of things going on, but still did the exercises she received at previous session. Ale reports her muscles are suprisingly sore from the exercises previous session. Patient feels L hip pain is attributed to her weakness and with the exercise she can see the left hip is week. Ale rates L hip pain 05/29 start of sessoin. PT-OP-G Mobility & Gait Start: 08/31/24 16:40 Freq: Status: Active Protocol: Document 09/01/24 11:26 SAK (Rec: 09/01/24 14:27 [facility] Laptop) OP Mobility Evaluation Functional Movements Squats able to return to stand without using hands OP Gait Assessment Gait Gait Assistance Required: Independent Assistive Devices Assistive Device None Gait Deviations General Gait Pattern Within Normal Limits Comments Gait Comments decreased gluteal engagement, quad dominant pattern PT-OP-H Neuro Start: 08/31/24 16:40 Freq: Status: Active Protocol: Document 09/01/24 11:26 SAK (Rec: 09/01/24 14:27 [facility] Laptop) Sensation Evaluation Gross Sensation Gross Sensation WNL PT-OP-J Posture/Palpation/Skin Start: 08/31/24 16:40 Freq: Status: Active Protocol: Document 09/01/24 11:26 [facility] (Rec: 09/01/24 12:16 [facility] Laptop) Posture Evaluation Position Standing Arm Posture (L) Internally Rotated,(R) Internally Rotated Pelvis Posture Posterior Tilted Hip Posture (R) Neutral,(L) Externally Rotated Foot Arch (L) Low Arch,(R) Low Arch Palpation Assessment Location left piriformis Palpation Findings Soft Tissue Tightness PT-OP-K Range of Motion Start: 08/31/24 16:40 Freq: Status: Active Protocol: Document 09/01/24 11:26 [facility] (Rec: 09/01/24 14:27 [facility] Laptop) Lumbar Spine Range of Motion Lumbar Spine Active Testing Position Standing Comments WFL Hip Goniometric Range of Motion Hip Left Hip ROM WFL Yes Right Hip ROM WFL Yes Hip ROM Limitations Comments mild tightnes yadira iliopsoas and quads Knee Goniometric Range of Motion Knee yadira Knee ROM WFL Yes Ankle and Foot Goniometric Range of Motion Ankle and Foot yadira Ankle/Foot ROM WFL Yes PT-OP-L Special Tests Start: 08/31/24 16:40 Freq: Status: Active Protocol: Document 09/01/24 11:26 [facility] (Rec: 09/01/24 14:27 [facility] Laptop) Special Tests Hip Special Tests Scour Test Test Results + Hip IR:ER Ratios Test Results - Straight Leg Raise Test Results - PT-OP-M Strength Start: 08/31/24 16:40 Freq: Status: Active Protocol: Document 09/01/24 11:26 SAK (Rec: 09/01/24 16:14 SAK Laptop) Hip Strength Hip Manual Muscle Testing Left Flexion (L2) 4- Good- Extension (S1) 3+ Fair+ Abduction 4- Good- Adduction 4- Good- External Rotation 3+ Fair+ Internal Rotation 4- Good- Right Flexion (L2) 4 Good Extension (S1) 4 Good Abduction 4 Good Adduction 4 Good External Rotation 4- Good- Internal Rotation 4 Good Knee Strength Knee Manual Muscle Testing yadira Flexion (S2) 4+ Good+ Extension (L3) 4+ Good+ PT-OP-Q Treatments Start: 08/31/24 16:40 Freq: Status: Active Protocol: Document 09/10/24 14:24 AB (Rec: 09/10/24 18:03 AB Laptop) Therapeutic Exercises Supine Exercises Henrry stretch Supine Exercise Name reports HS cramp with first trial knee flexion, resolved w / cues dec range Side bilateral Comments 60 seconds also added knee flexion X10 AROM minimal movement bridge Supine Exercise Name single Reps/Minutes X10 each Comments Vc to press into heel to prevent HS cramping Prone Exercises quad stretch Equipment Used strap Reps/Minutes x30 Sidelying Exercises clamshell Equipment Used wall Reps/Minutes 10x Comments good form hip ab Equipment Used wall Reps/Minutes 10 Comments good form Standing Exercises glute med isometric Reps/Minutes 30 seconds each LE Comments verbal and visual cues sit to stand Standing Exercise Name with band Resistance level 2 band Reps/Minutes X 10 X2 Comments verbal cues to keep tension on band PT-OP-T Assessment and Plan Start: 08/31/24 16:40 Freq: Status: Active Protocol: Document 09/10/24 14:24 AB (Rec: 09/10/24 18:03 AB Laptop) Physical Therapy Assessment Goals Three Impairment lower extremity functional scale 75% Computer Operator Goal (LTG) Improve LEFS score to at least 85% as measure of improved activity tolerance and left hip function LTG Duration 11/01/24 Two Impairment weakness yadira hips left greater than right Short Term Goal (STG) Patient to be instructed in progressive, individualized HEP for purposes of hip strengthening and functional task performance STG Duration 10/01/24 Computer Operator Goal (LTG) Patient to be independent and compliant with HEP with correct performance and demonstrate improvement in hip strength to 5/5 LTG Duration 11/01/24 One Impairment pain left hip as high as 6/10 Computer Operator Goal (LTG) decrease pain to no greater than 2/10 with all usual activities including gardening and taking walks LTG Duration 11/01/24 Assessment Summary Assessment Good return demonstration for HEP review. Sit to stand with band added to HEP. Patient may benefit from core exercise as 20% deficit in core strength requires LE's to have to work 43% harder. Physical Therapy Plan Frequency and Duration Frequency of Treatment 2x/Week Duration of treatment (weeks) 8 Plan of Care Start Date 09/01/24 Plan of Care End Date 11/01/24 Next Visit Focus/Plan Next Note Type Treatment Note Next Visit Plan Further review of patient prior exercise activities and discuss self assessment. Progress HEP as indicated/ next session Nellie patel 3 as 20% deficit in core strength requires UE's and LE's to work 43% harder. Progress band with sit to stand with band, side stepping/monster walks in clinic Manual therapy and modalities PRN pain.
--- NOTE | 2024-09-15 16:23 | PT.OTN ---
Current Diagnoses Pain in left hip (09/15/24) Difficulty in walking, not elsewhere classified (09/15/24) Weakness (09/15/24) Physical Therapy Treatment Note PT-OP-A Visit Information Start: 08/31/24 16:40 Freq: Status: Active Protocol: Document 09/15/24 14:32 AB (Rec: 09/15/24 16:23 AB Laptop) Out-Patient Physical Therapy Visit Information Visit Information Visit Type Treatment Note Visit Note Access Code: [email or web address] Visit Start Time 14:32 Visit Stop Time 15:16 Visit Number 4 Number of LINUX SECURITY ADMINISTRATOR Visits 2 PT-OP-B Current Condition Start: 08/31/24 16:40 Freq: Status: Active Protocol: Document 09/08/24 16:31 SAK (Rec: 09/08/24 16:38 SAK Laptop) Current Condition History of Current Condition Onset Date May 2024 Current Complaints L hip pain History of Current Condition Onset right elbow and left hip pain. Given exercises for elbow and in chart reported do exercises, d/c push ups and follow up. Does counter push ups due to wrist issues. 80% better. Left hip pain occasional; increases with turning. Has tried walking more gently, not as fast. Does online sara (Fit with Zofia pilates and weights) including squats, lunges 1-2x/ wk. 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 Sits with legs crossed some, but alternates which leg, left leg more flexible. Sleeps both sides, no use of pillows. Is right handed, tries to engage core and get left side to do more. Prior Treatments and Tests x-ray: moderate arthritis PT-OP-C Subjective Start: 08/31/24 16:40 Freq: Status: Active Protocol: Document 09/15/24 14:32 AB (Rec: 09/15/24 16:23 AB Laptop) OP-PT Subjective Patient Comments Patient Comments Patient reports she has been worse since Saturday, it has never been 3 days like this, unable to step forward with L LE. Patient reports she did her exercises on Saturday and Saturday. Patient rates pain 8 /10 when she attempts to walk forward, comments it catches. PT-OP-G Mobility & Gait Start: 08/31/24 16:40 Freq: Status: Active Protocol: Document 09/01/24 11:26 SAK (Rec: 09/01/24 14:27 SAK Laptop) OP Mobility Evaluation Functional Movements Squats able to return to stand without using hands OP Gait Assessment Gait Gait Assistance Required: Independent Assistive Devices Assistive Device None Gait Deviations General Gait Pattern Within Normal Limits Comments Gait Comments decreased gluteal engagement, quad dominant pattern PT-OP-H Neuro Start: 08/31/24 16:40 Freq: Status: Active Protocol: Document 09/01/24 11:26 SAK (Rec: 09/01/24 14:27 SAK Laptop) Sensation Evaluation Gross Sensation Gross Sensation WNL PT-OP-J Posture/Palpation/Skin Start: 08/31/24 16:40 Freq: Status: Active Protocol: Document 09/01/24 11:26 SAK (Rec: 09/01/24 12:16 SAK Laptop) Posture Evaluation Position Standing Arm Posture (L) Internally Rotated,(R) Internally Rotated Pelvis Posture Posterior Tilted Hip Posture (R) Neutral,(L) Externally Rotated Foot Arch (L) Low Arch,(R) Low Arch Palpation Assessment Location left piriformis Palpation Findings Soft Tissue Tightness PT-OP-K Range of Motion Start: 08/31/24 16:40 Freq: Status: Active Protocol: Document 09/01/24 11:26 SAK (Rec: 09/01/24 14:27 [facility] Laptop) Lumbar Spine Range of Motion Lumbar Spine Active Testing Position Standing Comments WFL Hip Goniometric Range of Motion Hip Left Hip ROM WFL Yes Right Hip ROM WFL Yes Hip ROM Limitations Comments mild tightnes yadira iliopsoas and quads Knee Goniometric Range of Motion Knee yadira Knee ROM WFL Yes Ankle and Foot Goniometric Range of Motion Ankle and Foot yadira Ankle/Foot ROM WFL Yes PT-OP-L Special Tests Start: 08/31/24 16:40 Freq: Status: Active Protocol: Document 09/01/24 11:26 SAK (Rec: 09/01/24 14:27 [facility] Laptop) Special Tests Hip Special Tests Scour Test Test Results + Hip IR:ER Ratios Test Results - Straight Leg Raise Test Results - PT-OP-M Strength Start: 08/31/24 16:40 Freq: Status: Active Protocol: Document 09/01/24 11:26 SAK (Rec: 09/01/24 16:14 SAK Laptop) Hip Strength Hip Manual Muscle Testing Left Flexion (L2) 4- Good- Extension (S1) 3+ Fair+ Abduction 4- Good- Adduction 4- Good- External Rotation 3+ Fair+ Internal Rotation 4- Good- Right Flexion (L2) 4 Good Extension (S1) 4 Good Abduction 4 Good Adduction 4 Good External Rotation 4- Good- Internal Rotation 4 Good Knee Strength Knee Manual Muscle Testing yadira Flexion (S2) 4+ Good+ Extension (L3) 4+ Good+ PT-OP-Q Treatments Start: 08/31/24 16:40 Freq: Status: Active Protocol: Document 09/15/24 14:32 AB (Rec: 09/15/24 16:23 AB Laptop) Therapeutic Exercises Supine Exercises chin tuck with head lift Reps/Minutes 10 sec X 5 Comments verbal cues piriformis stretch Supine Exercise Name from hooklying Reps/Minutes one min each LE X 2 Comments verbal cues Henrry stretch Side bilateral Comments 60 seconds also added knee flexion X10 AROM minimal movement Prone Exercises quad stretch Prone Exercise Name Patient ed to hold this exercise Sidelying Exercises side plank Sidelying Exercise Name on knees Reps/Minutes 7 sec X 5 each side Other Exercises bird dog Other Exercise Name from quadruped Reps/Minutes 7 sec X 5 Comments verbal cues to avoid pelvic drop and to kick straight back avoid LS ext Manual Therapy Treatment Consent Patient gave verbal consent for manual Yes treatment Soft Tissue Mobilization bilateral hips Body Location Glute/piriformis/SI area, illipsoas -- bilaterally Mobilization Type Cross-Friction,Rolling Intensity/Depth Moderate Body Position Sidelying Comments and hooklying Manual Techniques R AI left PI MET and pubic shotgun Reps/Duration 6 X6 seconds each PT-OP-T Assessment and Plan Start: 08/31/24 16:40 Freq: Status: Active Protocol: Document 09/15/24 14:32 AB (Rec: 09/15/24 16:23 AB Laptop) Physical Therapy Assessment Goals Three Impairment lower extremity functional scale 75% Dryer And Washer Mechanic Goal (LTG) Improve LEFS score to at least 85% as measure of improved activity tolerance and left hip function LTG Duration 11/01/24 Two Impairment weakness yadira hips left greater than right Short Term Goal (STG) Patient to be instructed in progressive, individualized HEP for purposes of hip strengthening and functional task performance STG Duration 10/01/24 Senior Care Goal (LTG) Patient to be independent and compliant with HEP with correct performance and demonstrate improvement in hip strength to 5/5 LTG Duration 11/01/24 One Impairment pain left hip as high as 6/10 Dryer And Washer Mechanic Goal (LTG) decrease pain to no greater than 2/10 with all usual activities including gardening and taking walks LTG Duration 11/01/24 Assessment Summary Assessment Patient advised to hold quad stretch with strap prone for now. Decreased guarding with ambulation post MET/manual therapy, but not WNL. Patient reports L hip is tender but is much better, able to ambulate without device forward with improved gait pattern, had to ambulate backwards and side step into session due to L hip pain when ambulating facing forward. Physical Therapy Plan Frequency and Duration Frequency of Treatment 2x/Week Duration of treatment (weeks) 8 Plan of Care Start Date 09/01/24 Plan of Care End Date 11/01/24 Next Visit Focus/Plan Next Note Type Treatment Note Next Visit Plan Further review of patient prior exercise activities and discuss self assessment. Progress HEP as indicated/ next session continue / possibly add tp HEP [facility] big 3 as 20% deficit in core strength requires UE's and LE' s to work 43% harder. Progress band with sit to stand with band, side stepping/monster walks in clinic Manual therapy and modalities PRN pain.
--- NOTE | 2024-09-17 13:45 | PT.OTN ---
Current Diagnoses Pain in left hip (09/17/24) Difficulty in walking, not elsewhere classified (09/17/24) Weakness (09/17/24) Physical Therapy Treatment Note PT-OP-A Visit Information Start: 08/31/24 16:40 Freq: Status: Active Protocol: Document 09/17/24 13:02 SP (Rec: 09/17/24 14:32 SP [id number]) Out-Patient Physical Therapy Visit Information Visit Information Visit Type Treatment Note Visit Start Time 13:02 Visit Stop Time 13:45 Visit Number 5 Number of CAUL DRESSER Visits 3 Evaluation Information Evaluation Date 09/01/24 PT-OP-B Current Condition Start: 08/31/24 16:40 Freq: Status: Active Protocol: Document 09/08/24 16:31 SAK (Rec: 09/08/24 16:38 SAK Laptop) Current Condition History of Current Condition Onset Date May 2024 Current Complaints L hip pain History of Current Condition Onset right elbow and left hip pain. Given exercises for elbow and in chart reported do exercises, d/c push ups and follow up. Does counter push ups due to wrist issues. 80% better. Left hip pain occasional; increases with turning. Has tried walking more gently, not as fast. Does online sara (Fit with Zofia pilates and weights) including squats, lunges 1-2x/ wk. 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 Sits with legs crossed some, but alternates which leg, left leg more flexible. Sleeps both sides, no use of pillows. Is right handed, tries to engage core and get left side to do more. Prior Treatments and Tests x-ray: moderate arthritis PT-OP-C Subjective Start: 08/31/24 16:40 Freq: Status: Active Protocol: Document 09/17/24 13:02 SP (Rec: 09/17/24 14:32 SP [id number]) OP-PT Subjective Patient Comments Patient Comments Pt reports sitting and laying down, walking backwards and crab walk to L ok with 1 trek pole support but frustrated front L hip pain has been having over the past week. SHe just has pain when weight bearing onto LLE, has to engage for support. A PT friend of hers suggested tennis ball STMs to anterior L hip prone for sustained pressure release, didn't see improvement and very sensitive to palpate area. She hasn't performed some HEP due to pain . She wants to just be able to decrease pain and mobilit with stretching to accomplish today. PT-OP-G Mobility & Gait Start: 08/31/24 16:40 Freq: Status: Active Protocol: Document 09/01/24 11:26 [facility] (Rec: 09/01/24 14:27 [facility] Laptop) OP Mobility Evaluation Functional Movements Squats able to return to stand without using hands OP Gait Assessment Gait Gait Assistance Required: Independent Assistive Devices Assistive Device None Gait Deviations General Gait Pattern Within Normal Limits Comments Gait Comments decreased gluteal engagement, quad dominant pattern PT-OP-H Neuro Start: 08/31/24 16:40 Freq: Status: Active Protocol: Document 09/01/24 11:26 [facility] (Rec: 09/01/24 14:27 [facility] Laptop) Sensation Evaluation Gross Sensation Gross Sensation WNL PT-OP-J Posture/Palpation/Skin Start: 08/31/24 16:40 Freq: Status: Active Protocol: Document 09/01/24 11:26 [facility] (Rec: 09/01/24 12:16 [facility] Laptop) Posture Evaluation Position Standing Arm Posture (L) Internally Rotated,(R) Internally Rotated Pelvis Posture Posterior Tilted Hip Posture (R) Neutral,(L) Externally Rotated Foot Arch (L) Low Arch,(R) Low Arch Palpation Assessment Location left piriformis Palpation Findings Soft Tissue Tightness PT-OP-K Range of Motion Start: 08/31/24 16:40 Freq: Status: Active Protocol: Document 09/01/24 11:26 [facility] (Rec: 09/01/24 14:27 [facility] Laptop) Lumbar Spine Range of Motion Lumbar Spine Active Testing Position Standing Comments WFL Hip Goniometric Range of Motion Hip Left Hip ROM WFL Yes Right Hip ROM WFL Yes Hip ROM Limitations Comments mild tightnes yadira iliopsoas and quads Knee Goniometric Range of Motion Knee yadira Knee ROM WFL Yes Ankle and Foot Goniometric Range of Motion Ankle and Foot yadira Ankle/Foot ROM WFL Yes PT-OP-L Special Tests Start: 08/31/24 16:40 Freq: Status: Active Protocol: Document 09/01/24 11:26 SAK (Rec: 09/01/24 14:27 [facility] Laptop) Special Tests Hip Special Tests Scour Test Test Results + Hip IR:ER Ratios Test Results - Straight Leg Raise Test Results - PT-OP-M Strength Start: 08/31/24 16:40 Freq: Status: Active Protocol: Document 09/01/24 11:26 SAK (Rec: 09/01/24 16:14 SAK Laptop) Hip Strength Hip Manual Muscle Testing Left Flexion (L2) 4- Good- Extension (S1) 3+ Fair+ Abduction 4- Good- Adduction 4- Good- External Rotation 3+ Fair+ Internal Rotation 4- Good- Right Flexion (L2) 4 Good Extension (S1) 4 Good Abduction 4 Good Adduction 4 Good External Rotation 4- Good- Internal Rotation 4 Good Knee Strength Knee Manual Muscle Testing yadira Flexion (S2) 4+ Good+ Extension (L3) 4+ Good+ PT-OP-Q Treatments Start: 08/31/24 16:40 Freq: Status: Active Protocol: Document 09/17/24 13:02 SP (Rec: 09/17/24 14:32 SP [id number]) Therapeutic Exercises Supine Exercises Adductor Stretch\ Supine Exercise Name added Adductor Stretch ( butterfly positioning)- declined HO Side bilateral Henrry stretch Supine Exercise Name DC addition knee flexion Side left Reps/Minutes 60 sec Comments tight quad with not able to get close to flex 90deg- impr range quad STMs Prone Exercises quad stretch Prone Exercise Name Reintroduced Side left Equipment Used strap on foot Reps/Minutes 60 SH Comments breath gentle pnfree range Gait Training Gait Activity Trek Pole Device Used RUE trek pole Level of Assistance Mod I Treatment Focus 2 pt gait patterning Comments cued increase OSKAR, TA during LLE WB soft stepping glut heel strike. Improved demo end tx leaving. Manual Therapy Treatment Consent Patient gave verbal consent for manual Yes treatment Soft Tissue Mobilization Trunk Body Location abdominal, iliacus Mobilization Type Myofascial Release,Sustained Pressure Body Position Hooklying Comments gentle glide bilateral hips Body Location L proximal Sartorius hooklying , prox/mid/distal Rec Fem Henrry pos Mobilization Type Cross-Friction,Rolling, Sustained Pressure,Other Intensity/Depth Moderate Body Position Hooklying Comments STM and MWM hip IR/ ER, little more sensitive to ER Ed self use of rolling pin to quad Manual Techniques MET hips Type Post rotation L, elevated medial malleolus Reps/Duration 5 SH x5 Comments MET: resisted L hip flexion and isometric adduction; Resisted R hip extension and abduction- corrected pelvic alignment. PT-OP-T Assessment and Plan Start: 08/31/24 16:40 Freq: Status: Active Protocol: Document 09/17/24 13:02 SP (Rec: 09/17/24 14:32 SP [id number]) Physical Therapy Assessment Goals Three Impairment lower extremity functional scale 75% Detention Goal (LTG) Improve LEFS score to at least 85% as measure of improved activity tolerance and left hip function LTG Duration 11/01/24 Two Impairment weakness yadira hips left greater than right Short Term Goal (STG) Patient to be instructed in progressive, individualized HEP for purposes of hip strengthening and functional task performance STG Duration 10/01/24 Billing Machine Operator Goal (LTG) Patient to be independent and compliant with HEP with correct performance and demonstrate improvement in hip strength to 5/5 LTG Duration 11/01/24 One Impairment pain left hip as high as 6/10 Billing Machine Operator Goal (LTG) decrease pain to no greater than 2/10 with all usual activities including gardening and taking walks LTG Duration 11/01/24 Assessment Summary Assessment Pt responds well to manual MET pelvic corrections, STMs and stretching to decreased L anterior hip pain over proximal Sartorius. Discussed hold off on SL exercises at this time causing pain. Improved 2pt gait with R UE use Trek Pole with LLE, cued TA during gait heel stride and midstance for decreased hip pain with good results less than when arrived. Physical Therapy Plan Frequency and Duration Frequency of Treatment 2x/Week Duration of treatment (weeks) 8 Plan of Care Start Date 09/01/24 Plan of Care End Date 11/01/24 Therapeutic Interventions Therapeutic Interventions Gait Training,Home Exercise Program,Manual Therapy,Patient /Caregiver Education,Self-Care /Home Management,Soft Tissue Mobilization,Taping, Therapeutic Activities, Therapeutic Exercises Modalities Cold Pack/Ice Massage,Electric Stimulation,Hot Packs, Infrared Therapy,Ultrasound Next Visit Focus/Plan Next Note Type Treatment Note Next Visit Plan Ask response to reduction HEP Henrry, prone quad and adductor stretch, manual with ball anterior L hip if beneficial, discuss self assessment. If decrease pain L anterior hip can trial progress HEP as indicated/ next session continue / possibly add tp HEP [facility] big 3 as 20% deficit in core strength requires UE's and LE' s to work 43% harder. Progress band with sit to stand with band, side stepping/monster walks in clinic Manual therapy and modalities PRN pain.
--- NOTE | 2024-09-22 12:16 | PT.OTN ---
Current Diagnoses Pain in left hip (09/22/24) Difficulty in walking, not elsewhere classified (09/22/24) Weakness (09/22/24) Physical Therapy Treatment Note PT-OP-A Visit Information Start: 08/31/24 16:40 Freq: Status: Active Protocol: Document 09/22/24 11:35 SP (Rec: 09/22/24 12:24 SP [id number]) Out-Patient Physical Therapy Visit Information Visit Information Visit Type Treatment Note Visit Note BRANDYNPancho Tanika observed tx with permission of pt. Visit Start Time 11:33 Visit Stop Time 12:16 Visit Number 6 Number of TRIMMING CUTTER Visits 4 Evaluation Information Evaluation Date 09/01/24 PT-OP-B Current Condition Start: 08/31/24 16:40 Freq: Status: Active Protocol: Document 09/08/24 16:31 SAK (Rec: 09/08/24 16:38 SAK Laptop) Current Condition History of Current Condition Onset Date May 2024 Current Complaints L hip pain History of Current Condition Onset right elbow and left hip pain. Given exercises for elbow and in chart reported do exercises, d/c push ups and follow up. Does counter push ups due to wrist issues. 80% better. Left hip pain occasional; increases with turning. Has tried walking more gently, not as fast. Does online sara (Fit with Zofia pilates and weights) including squats, lunges 1-2x/ wk. 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 Sits with legs crossed some, but alternates which leg, left leg more flexible. Sleeps both sides, no use of pillows. Is right handed, tries to engage core and get left side to do more. Prior Treatments and Tests x-ray: moderate arthritis PT-OP-C Subjective Start: 08/31/24 16:40 Freq: Status: Active Protocol: Document 09/22/24 11:35 SP (Rec: 09/22/24 12:24 SP [id number]) OP-PT Subjective Patient Comments Patient Comments Pt reported going little better. Less twinges walking when mindful little smaller stride. She is compliant with stretching, side clamshell and Modified Henrry stretch with thigh supported initially and if ok letting leg hang of table more. PT-OP-G Mobility & Gait Start: 08/31/24 16:40 Freq: Status: Active Protocol: Document 09/01/24 11:26 SAK (Rec: 09/01/24 14:27 [facility] Laptop) OP Mobility Evaluation Functional Movements Squats able to return to stand without using hands OP Gait Assessment Gait Gait Assistance Required: Independent Assistive Devices Assistive Device None Gait Deviations General Gait Pattern Within Normal Limits Comments Gait Comments decreased gluteal engagement, quad dominant pattern PT-OP-H Neuro Start: 08/31/24 16:40 Freq: Status: Active Protocol: Document 09/01/24 11:26 SAK (Rec: 09/01/24 14:27 [facility] Laptop) Sensation Evaluation Gross Sensation Gross Sensation WNL PT-OP-J Posture/Palpation/Skin Start: 08/31/24 16:40 Freq: Status: Active Protocol: Document 09/01/24 11:26 SAK (Rec: 09/01/24 12:16 [facility] Laptop) Posture Evaluation Position Standing Arm Posture (L) Internally Rotated,(R) Internally Rotated Pelvis Posture Posterior Tilted Hip Posture (R) Neutral,(L) Externally Rotated Foot Arch (L) Low Arch,(R) Low Arch Palpation Assessment Location left piriformis Palpation Findings Soft Tissue Tightness PT-OP-K Range of Motion Start: 08/31/24 16:40 Freq: Status: Active Protocol: Document 09/01/24 11:26 SAK (Rec: 09/01/24 14:27 [facility] Laptop) Lumbar Spine Range of Motion Lumbar Spine Active Testing Position Standing Comments WFL Hip Goniometric Range of Motion Hip Left Hip ROM WFL Yes Right Hip ROM WFL Yes Hip ROM Limitations Comments mild tightnes yadira iliopsoas and quads Knee Goniometric Range of Motion Knee yadira Knee ROM WFL Yes Ankle and Foot Goniometric Range of Motion Ankle and Foot yadira Ankle/Foot ROM WFL Yes PT-OP-L Special Tests Start: 08/31/24 16:40 Freq: Status: Active Protocol: Document 09/01/24 11:26 SAK (Rec: 09/01/24 14:27 [facility] Laptop) Special Tests Hip Special Tests Scour Test Test Results + Hip IR:ER Ratios Test Results - Straight Leg Raise Test Results - PT-OP-M Strength Start: 08/31/24 16:40 Freq: Status: Active Protocol: Document 09/01/24 11:26 SAK (Rec: 09/01/24 16:14 SAK Laptop) Hip Strength Hip Manual Muscle Testing Left Flexion (L2) 4- Good- Extension (S1) 3+ Fair+ Abduction 4- Good- Adduction 4- Good- External Rotation 3+ Fair+ Internal Rotation 4- Good- Right Flexion (L2) 4 Good Extension (S1) 4 Good Abduction 4 Good Adduction 4 Good External Rotation 4- Good- Internal Rotation 4 Good Knee Strength Knee Manual Muscle Testing yadira Flexion (S2) 4+ Good+ Extension (L3) 4+ Good+ PT-OP-Q Treatments Start: 08/31/24 16:40 Freq: Status: Active Protocol: Document 09/22/24 11:35 SP (Rec: 09/22/24 12:24 SP [id number]) Therapeutic Exercises Supine Exercises Adductor Stretch\ Supine Exercise Name Reviewed: Adductor Stretch ( butterfly positioning- not wanting HO) Side bilateral Reps/Minutes 60 sec chin tuck with head lift Supine Exercise Name Reviewed: Dakota Big 3 Resistance B il leg bent> trialed 1 leg straight, other leg knee bent/ foot ontable Reps/Minutes 10> 3 sec X 5 Comments verbal cues chin tuck then head lift hold, pnfree range Henrry stretch Supine Exercise Name Reviewed Side left Equipment Used holding R knee to chest, R LE off table Reps/Minutes 60 sec Comments good feedback stretch Prone Exercises quad stretch Prone Exercise Name reviewed Side bilateral Resistance L>R tightness Equipment Used strap on foot Reps/Minutes 60 SH Comments good report gentle quad stretch pnfree range Sidelying Exercises side plank Sidelying Exercise Name [place] Big 3 Reps/Minutes 5 sec X 5 each side Comments occ cued head alignment, less knee flexion support no cramp feeling (occ) Other Exercises Quad/Sartorius Stretch Other Exercise Name Self stretch review: Equipment Used crab quadruped positioning/ anterior trunk facing ceiling Reps/Minutes 30 sec Comments slowly lower knee toward floor increased quad stretch in WB position bird dog Other Exercise Name Dakota Big 3 Reps/Minutes 7>3 sec X 5 each side alternating Comments verbal cues to avoid pelvic drop and to kick straight back avoid LS ext PT-OP-T Assessment and Plan Start: 08/31/24 16:40 Freq: Status: Active Protocol: Document 09/22/24 11:35 SP (Rec: 09/22/24 12:24 SP [id number]) Physical Therapy Assessment Goals Three Impairment lower extremity functional scale 75% Cell Operator Goal (LTG) Improve LEFS score to at least 85% as measure of improved activity tolerance and left hip function LTG Duration 11/01/24 Two Impairment weakness yadira hips left greater than right Short Term Goal (STG) Patient to be instructed in progressive, individualized HEP for purposes of hip strengthening and functional task performance STG Duration 10/01/24 Fdc Goal (LTG) Patient to be independent and compliant with HEP with correct performance and demonstrate improvement in hip strength to 5/5 LTG Duration 11/01/24 One Impairment pain left hip as high as 6/10 Cell Operator Goal (LTG) decrease pain to no greater than 2/10 with all usual activities including gardening and taking walks LTG Duration 11/01/24 Assessment Summary Assessment Pt good form with stretching review and response to progressed Dakota Big 3 and more specific Sartorius stretching with cues for TA and pelvic alignment feedback. Continues to notice L quad tighter than R but feels making gains. Cued for slower pacing bird dog for stability form to allow safety back/hip with TA support. Physical Therapy Plan Frequency and Duration Frequency of Treatment 2x/Week Duration of treatment (weeks) 8 Plan of Care Start Date 09/01/24 Plan of Care End Date 11/01/24 Therapeutic Interventions Therapeutic Interventions Gait Training,Home Exercise Program,Manual Therapy,Patient /Caregiver Education,Self-Care /Home Management,Soft Tissue Mobilization,Taping, Therapeutic Activities, Therapeutic Exercises Modalities Cold Pack/Ice Massage,Electric Stimulation,Hot Packs, Infrared Therapy,Ultrasound Next Visit Focus/Plan Next Note Type Treatment Note Next Visit Plan Assess response to added Dakota Big 3, and 2 Sartorius stretching with HO. POC: pt has 20% deficit in core strength requires UE's and LE's to work 43% harder. Next add sit to stand with band, side stepping/monster walks in clinic Manual therapy and modalities PRN pain. Potentially ready for DC by end September, going OOT October.
--- NOTE | 2024-09-29 13:40 | PT.OTN ---
Current Diagnoses Pain in left hip (09/29/24) Difficulty in walking, not elsewhere classified (09/29/24) Weakness (09/29/24) Physical Therapy Treatment Note PT-OP-A Visit Information Start: 08/31/24 16:40 Freq: Status: Active Protocol: Document 09/29/24 13:00 PG (Rec: 09/29/24 13:44 PG [id number]) Out-Patient Physical Therapy Visit Information Visit Information Visit Type Treatment Note Visit Note CHIKA Sagastume led tx with permission of pt and direct supervision of Zora ARROYO Visit Start Time 13:00 Visit Stop Time 13:40 Visit Number 7 Number of MICROARRAY SPECIALIST Visits 5 Evaluation Information Evaluation Date 09/01/24 PT-OP-B Current Condition Start: 08/31/24 16:40 Freq: Status: Active Protocol: Document 09/08/24 16:31 SAK (Rec: 09/08/24 16:38 SAK Laptop) Current Condition History of Current Condition Onset Date May 2024 Current Complaints L hip pain History of Current Condition Onset right elbow and left hip pain. Given exercises for elbow and in chart reported do exercises, d/c push ups and follow up. Does counter push ups due to wrist issues. 80% better. Left hip pain occasional; increases with turning. Has tried walking more gently, not as fast. Does online sara (Fit with Zofia pilates and weights) including squats, lunges 1-2x/ wk. 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 Sits with legs crossed some, but alternates which leg, left leg more flexible. Sleeps both sides, no use of pillows. Is right handed, tries to engage core and get left side to do more. Prior Treatments and Tests x-ray: moderate arthritis PT-OP-C Subjective Start: 08/31/24 16:40 Freq: Status: Active Protocol: Document 09/29/24 13:00 PG (Rec: 09/29/24 13:44 PG [id number]) OP-PT Subjective Patient Comments Patient Comments Pt has felt great, walked yesterday about 1.5miles on a trail, felt good after. Didn' t sleep well last night but not due to discomfort in hips, just didn't sleep well. Busy weekend with company. PT-OP-G Mobility & Gait Start: 08/31/24 16:40 Freq: Status: Active Protocol: Document 09/01/24 11:26 SAK (Rec: 09/01/24 14:27 [facility] Laptop) OP Mobility Evaluation Functional Movements Squats able to return to stand without using hands OP Gait Assessment Gait Gait Assistance Required: Independent Assistive Devices Assistive Device None Gait Deviations General Gait Pattern Within Normal Limits Comments Gait Comments decreased gluteal engagement, quad dominant pattern PT-OP-H Neuro Start: 08/31/24 16:40 Freq: Status: Active Protocol: Document 09/01/24 11:26 SAK (Rec: 09/01/24 14:27 [facility] Laptop) Sensation Evaluation Gross Sensation Gross Sensation WNL PT-OP-J Posture/Palpation/Skin Start: 08/31/24 16:40 Freq: Status: Active Protocol: Document 09/01/24 11:26 SAK (Rec: 09/01/24 12:16 [facility] Laptop) Posture Evaluation Position Standing Arm Posture (L) Internally Rotated,(R) Internally Rotated Pelvis Posture Posterior Tilted Hip Posture (R) Neutral,(L) Externally Rotated Foot Arch (L) Low Arch,(R) Low Arch Palpation Assessment Location left piriformis Palpation Findings Soft Tissue Tightness PT-OP-K Range of Motion Start: 08/31/24 16:40 Freq: Status: Active Protocol: Document 09/01/24 11:26 SAK (Rec: 09/01/24 14:27 [facility] Laptop) Lumbar Spine Range of Motion Lumbar Spine Active Testing Position Standing Comments WFL Hip Goniometric Range of Motion Hip Left Hip ROM WFL Yes Right Hip ROM WFL Yes Hip ROM Limitations Comments mild tightnes yadira iliopsoas and quads Knee Goniometric Range of Motion Knee yadira Knee ROM WFL Yes Ankle and Foot Goniometric Range of Motion Ankle and Foot yadira Ankle/Foot ROM WFL Yes PT-OP-L Special Tests Start: 08/31/24 16:40 Freq: Status: Active Protocol: Document 09/01/24 11:26 SAK (Rec: 09/01/24 14:27 [facility] Laptop) Special Tests Hip Special Tests Scour Test Test Results + Hip IR:ER Ratios Test Results - Straight Leg Raise Test Results - PT-OP-M Strength Start: 08/31/24 16:40 Freq: Status: Active Protocol: Document 09/01/24 11:26 SAK (Rec: 09/01/24 16:14 [facility] Laptop) Hip Strength Hip Manual Muscle Testing Left Flexion (L2) 4- Good- Extension (S1) 3+ Fair+ Abduction 4- Good- Adduction 4- Good- External Rotation 3+ Fair+ Internal Rotation 4- Good- Right Flexion (L2) 4 Good Extension (S1) 4 Good Abduction 4 Good Adduction 4 Good External Rotation 4- Good- Internal Rotation 4 Good Knee Strength Knee Manual Muscle Testing yadira Flexion (S2) 4+ Good+ Extension (L3) 4+ Good+ PT-OP-Q Treatments Start: 08/31/24 16:40 Freq: Status: Active Protocol: Document 09/29/24 13:00 PG (Rec: 09/29/24 13:44 PG [id number]) Therapeutic Exercises Supine Exercises chin tuck with head lift Supine Exercise Name Reviewed: Dakota Big 3 Resistance B il leg bent> trialed 1 leg straight, other leg knee bent/ foot ontable Reps/Minutes 10> 3 sec X 5 Comments verbal cues chin tuck then head lift hold, pnfree range Sidelying Exercises side plank Sidelying Exercise Name Dakota Big 3 Reps/Minutes 5 sec X 5 each side Comments occ cued head alignment, less knee flexion support no cramp feeling (occ) Standing Exercises Monster walk Standing Exercise Name Trialed in PT, added to HEP - fwrd and bckwrd wlking steps at an angle. Resistance lvl 2 (teal) tb Reps/Minutes 2x length of railing in hallway each Comments cued for slight bend in knees, hinge at hips Lateral walking Standing Exercise Name Trialed in PT, added to HEP Resistance lvl 2 (teal) tb Equipment Used 2x railing down and back Reps/Minutes cued for slight bend in knees, hinge at hips [place] 1 Standing Exercise Name Sart[place]ous Stretch Side bilateral Reps/Minutes 30-60 seconds x 2 sit to stand Standing Exercise Name Reviewed, re-added to HEP with TB around thighs Resistance level 2 band Reps/Minutes 2x5 Comments verbal cues to keep tension on band, no hands Other Exercises Quad/Sartorius Stretch Other Exercise Name Self stretch review: Equipment Used crab quadruped positioning/ anterior trunk facing ceiling Reps/Minutes 30 sec Comments slowly lower knee toward floor increased quad stretch in WB position bird dog Other Exercise Name Dakota Big 3 Reps/Minutes 7>3 sec X 5 each side alternating Comments verbal cues to avoid pelvic drop and to kick straight back avoid LS ext PT-OP-T Assessment and Plan Start: 08/31/24 16:40 Freq: Status: Active Protocol: Document 09/29/24 13:00 PG (Rec: 09/29/24 13:44 PG [id number]) Physical Therapy Assessment Goals Three Impairment lower extremity functional scale 75% Decorative Cutting Machine Tender Goal (LTG) Improve LEFS score to at least 85% as measure of improved activity tolerance and left hip function LTG Duration 11/01/24 Two Impairment weakness yadira hips left greater than right Short Term Goal (STG) Patient to be instructed in progressive, individualized HEP for purposes of hip strengthening and functional task performance STG Duration 10/01/24 Custodial Goal (LTG) Patient to be independent and compliant with HEP with correct performance and demonstrate improvement in hip strength to 5/5 LTG Duration 11/01/24 One Impairment pain left hip as high as 6/10 Custodial Goal (LTG) decrease pain to no greater than 2/10 with all usual activities including gardening and taking walks LTG Duration 11/01/24 Assessment Summary Assessment Reviewed added Sartorius stretches and Dakota Big 3 core exercises, pt continues to have great form and good response, states Dakota Big 3 is a good challenge. Re-added STS's, initiated forward/ backward monster walks, and lateral walking all with resistance band at thighs for further hip strengthening. Physical Therapy Plan Frequency and Duration Frequency of Treatment 2x/Week Duration of treatment (weeks) 8 Plan of Care Start Date 09/01/24 Plan of Care End Date 11/01/24 Therapeutic Interventions Therapeutic Interventions Gait Training,Home Exercise Program,Manual Therapy,Patient /Caregiver Education,Self-Care /Home Management,Soft Tissue Mobilization,Taping, Therapeutic Activities, Therapeutic Exercises Modalities Cold Pack/Ice Massage,Electric Stimulation,Hot Packs, Infrared Therapy,Ultrasound Next Visit Focus/Plan Next Note Type Treatment Note Next Visit Plan Recheck Monster and lateral walking with resistance band. If ready, discharge 10/07 with PT (and cancel scheduled appt . 10/14 w MICROARRAY SPECIALIST) POC: pt has 20% deficit in core strength requires UE's and LE's to work 43% harder. Next add sit to stand with band, side stepping/monster walks in clinic Manual therapy and modalities PRN pain. Potentially ready for DC by end September, going OOT October.
--- NOTE | 2024-10-01 13:40 | PT.OTN ---
Current Diagnoses Pain in left hip (10/01/24) Difficulty in walking, not elsewhere classified (10/01/24) Weakness (10/01/24) Physical Therapy Treatment Note PT-OP-A Visit Information Start: 08/31/24 16:40 Freq: Status: Active Protocol: Document 10/01/24 12:59 SAK (Rec: 10/01/24 13:39 SAK Laptop) Out-Patient Physical Therapy Visit Information Visit Information Visit Type Treatment Note Visit Start Time 13:00 Visit Stop Time 13:40 Visit Number 8 Number of TEST BORER Visits 0 PT-OP-B Current Condition Start: 08/31/24 16:40 Freq: Status: Active Protocol: Document 09/08/24 16:31 SAK (Rec: 09/08/24 16:38 SAK Laptop) Current Condition History of Current Condition Onset Date May 2024 Current Complaints L hip pain History of Current Condition Onset right elbow and left hip pain. Given exercises for elbow and in chart reported do exercises, d/c push ups and follow up. Does counter push ups due to wrist issues. 80% better. Left hip pain occasional; increases with turning. Has tried walking more gently, not as fast. Does online sara [employer] with [employer] pilates and weights) including squats, lunges 1-2x/ wk. 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 Sits with legs crossed some, but alternates which leg, left leg more flexible. Sleeps both sides, no use of pillows. Is right handed, tries to engage core and get left side to do more. Prior Treatments and Tests x-ray: moderate arthritis PT-OP-C Subjective Start: 08/31/24 16:40 Freq: Status: Active Protocol: Document 10/01/24 12:59 SAK (Rec: 10/01/24 13:39 SAK Laptop) OP-PT Subjective Patient Comments Patient Comments REports no exercises yesterday due to being in hospital with all day due to him being in a-fib. Fees ready for discharge from PT today. Doing a lot of gardening. PT-OP-G Mobility & Gait Start: 08/31/24 16:40 Freq: Status: Active Protocol: Document 09/01/24 11:26 SAK (Rec: 09/01/24 14:27 SAK Laptop) OP Mobility Evaluation Functional Movements Squats able to return to stand without using hands OP Gait Assessment Gait Gait Assistance Required: Independent Assistive Devices Assistive Device None Gait Deviations General Gait Pattern Within Normal Limits Comments Gait Comments decreased gluteal engagement, quad dominant pattern PT-OP-H Neuro Start: 08/31/24 16:40 Freq: Status: Active Protocol: Document 09/01/24 11:26 [facility] (Rec: 09/01/24 14:27 SAK Laptop) Sensation Evaluation Gross Sensation Gross Sensation WNL PT-OP-J Posture/Palpation/Skin Start: 08/31/24 16:40 Freq: Status: Active Protocol: Document 09/01/24 11:26 [facility] (Rec: 09/01/24 12:16 SAK Laptop) Posture Evaluation Position Standing Arm Posture (L) Internally Rotated,(R) Internally Rotated Pelvis Posture Posterior Tilted Hip Posture (R) Neutral,(L) Externally Rotated Foot Arch (L) Low Arch,(R) Low Arch Palpation Assessment Location left piriformis Palpation Findings Soft Tissue Tightness PT-OP-K Range of Motion Start: 08/31/24 16:40 Freq: Status: Active Protocol: Document 09/01/24 11:26 [facility] (Rec: 09/01/24 14:27 [facility] Laptop) Lumbar Spine Range of Motion Lumbar Spine Active Testing Position Standing Comments WFL Hip Goniometric Range of Motion Hip Left Hip ROM WFL Yes Right Hip ROM WFL Yes Hip ROM Limitations Comments mild tightnes yadira iliopsoas and quads Knee Goniometric Range of Motion Knee yadira Knee ROM WFL Yes Ankle and Foot Goniometric Range of Motion Ankle and Foot yadira Ankle/Foot ROM WFL Yes PT-OP-L Special Tests Start: 08/31/24 16:40 Freq: Status: Active Protocol: Document 09/01/24 11:26 [facility] (Rec: 09/01/24 14:27 [facility] Laptop) Special Tests Hip Special Tests Scour Test Test Results + Hip IR:ER Ratios Test Results - Straight Leg Raise Test Results - PT-OP-M Strength Start: 08/31/24 16:40 Freq: Status: Active Protocol: Document 09/01/24 11:26 SAK (Rec: 09/01/24 16:14 SAK Laptop) Hip Strength Hip Manual Muscle Testing Left Flexion (L2) 4- Good- Extension (S1) 3+ Fair+ Abduction 4- Good- Adduction 4- Good- External Rotation 3+ Fair+ Internal Rotation 4- Good- Right Flexion (L2) 4 Good Extension (S1) 4 Good Abduction 4 Good Adduction 4 Good External Rotation 4- Good- Internal Rotation 4 Good Knee Strength Knee Manual Muscle Testing yadira Flexion (S2) 4+ Good+ Extension (L3) 4+ Good+ PT-OP-Q Treatments Start: 08/31/24 16:40 Freq: Status: Active Protocol: Document 10/01/24 12:59 [facility] (Rec: 10/01/24 13:39 [facility] Laptop) Therapeutic Exercises Supine Exercises chin tuck with head lift Supine Exercise Name Reviewed: [place] 3 Resistance B il leg bent> trialed 1 leg straight, other leg knee bent/ foot ontable Reps/Minutes 10> 3 sec X 5 Comments verbal cues chin tuck then head lift hold, pnfree range Henrry stretch Supine Exercise Name Reviewed Side left Equipment Used holding R knee to chest, R LE off table Reps/Minutes 60 sec Comments good feedback stretch Sidelying Exercises side plank Sidelying Exercise Name [place] Big 3 Reps/Minutes 5 sec X 5 each side Comments occ cued head alignment, less knee flexion support no cramp feeling (occ) Standing Exercises triangle pose Reps/Minutes 2x30 Monster walk Standing Exercise Name reviewed Resistance lvl 2 (teal) tb Reps/Minutes 2x length of railing in hallway each Comments cued for slight bend in knees, hinge at hips Lateral walking Standing Exercise Name reviewed Resistance lvl 2 (teal) tb Equipment Used 2x railing down and back Reps/Minutes cued for slight bend in knees, hinge at hips [place] 1 Standing Exercise Name [place] Stretch Side bilateral Reps/Minutes 30-60 seconds x 2 sit to stand Standing Exercise Name reviewed Resistance level 2 band Reps/Minutes 2x5 Comments verbal cues to keep tension on band, no hands Other Exercises bird dog Other Exercise Name [place] Big 3 Reps/Minutes 7>3 sec X 5 each side alternating Comments verbal cues to avoid pelvic drop and to kick straight back avoid LS ext PT-OP-T Assessment and Plan Start: 08/31/24 16:40 Freq: Status: Active Protocol: Document 10/01/24 12:59 [facility] (Rec: 10/01/24 13:39 [facility] Laptop) Physical Therapy Assessment Impairments Impairments Activity Tolerance,Pain, Strength Goals Three Impairment lower extremity functional scale 75% Fdc Goal (LTG) Improve LEFS score to at least 85% as measure of improved activity tolerance and left hip function 10/01/24: 99% goal met LTG Duration goal met Two Impairment weakness yadira hips left greater than right Short Term Goal (STG) Patient to be instructed in progressive, individualized HEP for purposes of hip strengthening and functional task performance 10/01/24: goal met STG Duration 10/01/24 Fdc Goal (LTG) Patient to be independent and compliant with HEP with correct performance and demonstrate improvement in hip strength to 10/01/24: goal met LTG Duration goal met One Impairment pain left hip as high as 6/10 Fdc Goal (LTG) decrease pain to no greater than 2/10 with all usual activities including gardening and taking walks 10/01/24: goal met LTG Duration goal met Assessment Summary Assessment Patient highly motivated and compliant to HEP. Has achieved all PT goals and is ready for discharge from PT. REviewed form for HEP and advised video self occasionally to check form especially bird dog. PT demonstrated good understanding. Physical Therapy Plan Frequency and Duration Frequency of Treatment 2x/Week Duration of treatment (weeks) 8 Plan of Care Start Date 09/01/24 Plan of Care End Date 11/01/24 Therapeutic Interventions Therapeutic Interventions Gait Training,Home Exercise Program,Manual Therapy,Patient /Caregiver Education,Self-Care /Home Management,Soft Tissue Mobilization,Taping, Therapeutic Activities, Therapeutic Exercises Modalities Cold Pack/Ice Massage,Electric Stimulation,Hot Packs, Infrared Therapy,Ultrasound Discharge Physical Therapy Discharge Reasons Goals Met
== END 2024-10-06 09:47 | disposition home or self-care (01) ==
LOC: PHYS 13:00
PROVIDERS: Family Provider Student in an Organized Health Care Education/Training Program; PCP Student in an Organized Health Care Education/Training Program; Referring Provider Student in an Organized Health Care Education/Training Program; Visit Provider Student in an Organized Health Care Education/Training Program
DX: M25.552 Pain in left hip (principal); R53.1 Weakness; R26.2 Difficulty in walking, not elsewhere classified
CPT/HCPCS: 97110; 97140; 97161; 97535

== ENCOUNTER → 2024-10-14 13:31 | Outpatient (CLI) | payer MEDICARE, OTHER, SELFPAY ==
[2024-10-14 16:21] LABS: Free T3, Triiodothyronine Free 3.54 pg/mL (2.77-5.27); Free T4, Direct Thyroxine 0.95 ng/dL (0.78-2.19)
[2024-10-14 16:34] LABS: Thyroid Stimulating Hormone 1.92 uIU/mL (0.47-4.68)
[2024-10-15 04:39] LABS: Apolipoprotein B 103 mg/dL (<90)
[2024-10-16 13:10] LABS: Anti Thyroglobulin Antibody <1.0 IU/mL (0.0-0.9); Thyroid Peroxidase Antibodies 15 IU/mL (0-34)
== END ==
PROVIDERS: Family Provider Student in an Organized Health Care Education/Training Program; PCP Student in an Organized Health Care Education/Training Program; Referring Provider Student in an Organized Health Care Education/Training Program; Visit Provider Student in an Organized Health Care Education/Training Program
DX: E78.5 Hyperlipidemia, unspecified (principal); E05.90 Thyrotoxicosis, unspecified without thyrotoxic crisis or storm
CPT/HCPCS: 36415; 82172; 84439; 84443; 84481; 86376; 86800

== ENCOUNTER → 2024-12-16 10:19 | Outpatient (CLI) | payer MEDICARE, OTHER, SELFPAY ==
[2024-12-16 11:21] LABS: Cholesterol 136 mg/dL (140-199); HDL Cholesterol 70 mg/dL (40-60); Triglycerides 61 mg/dL (35-150)
== END ==
PROVIDERS: Family Provider Student in an Organized Health Care Education/Training Program; PCP Student in an Organized Health Care Education/Training Program; Referring Provider Student in an Organized Health Care Education/Training Program; Visit Provider Student in an Organized Health Care Education/Training Program
DX: E78.5 Hyperlipidemia, unspecified (principal)
CPT/HCPCS: 36415; 80061

== ENCOUNTER → 2025-03-12 14:13 | Outpatient (CLI) | payer MEDICARE, OTHER, SELFPAY ==
[2025-03-12 15:20] LABS: Add Manual Diff / Slide Review NO; Hematocrit 32.8 % (36-46); Hemoglobin 10.9 g/dL (12.0-16.0); Lymphocytes Absolute Auto 900 /uL (1100-4500); Mean Corpuscular HGB Conc 33.2 % (30-36); Mean Corpuscular Hemoglobin 30.9 PG (26-34); Mean Corpuscular Volume 93.3 fL (80-100); Platelet Count 428 X10^3/uL (150-400)
[2025-03-12 15:35] LABS: HEMOLYSIS < 15 (0-50); Iron 57 ug/dL (37-170)
[2025-03-12 15:37] LABS: Alanine Aminotransferase 51 IU/L (<35); Albumin 4.1 g/dL (3.5-5.0); Albumin Globulin Ratio 1.5 (1.0-2.8); Alkaline Phosphatase 139 U/L (38-126); Blood Urea Nitrogen 10 mg/dL (7-17); Calcium 9.2 mg/dL (8.4-10.2); Carbon Dioxide 26 mmol/L (22-32); Chloride 103 mmol/L (98-107); Estimated Glomerular Filt Rate > 60 mL/min (>60); Globulin 2.8 g/dL (1.7-4.1); Glucose 105 mg/dL (70-99); HEMOLYSIS < 15 (0-50); Potassium 4.4 mmol/L (3.4-5.1); Sodium 138 mmol/L (137-145); Total Protein 6.9 g/dL (6.3-8.2)
[2025-03-12 15:48] LABS: Percent Iron Saturation 25 % (15-50); Total Iron Binding Capacity 226 ug/dL (265-497); Transferrin 184 mg/dL (206-381)
[2025-03-12 16:13] LABS: Thyroid Stimulating Hormone 3.28 uIU/mL (0.47-4.68)
[2025-03-12 16:14] LABS: Ferritin 232 ng/mL (11-264)
[2025-03-12 16:48] LABS: Folate 17.3 ng/mL (2.76-20.0); Vitamin B12 804 pg/mL (239-931)
== END ==
PROVIDERS: PCP Student in an Organized Health Care Education/Training Program; Referring Provider Student in an Organized Health Care Education/Training Program; Visit Provider Student in an Organized Health Care Education/Training Program
DX: E61.1 Iron deficiency (principal); R53.83 Other fatigue
CPT/HCPCS: 36415; 80053; 82607; 82728; 82746; 83540; 83550; 84443; 85025